=== PATIENT | female | born 1995 | race Caucasian/White ===

== ENCOUNTER 2016-12-29 22:49 | Outpatient (CLI) | payer MEDICAID | END 2016-12-30 00:10 | disposition home or self-care (01) | LOC: MW.OBCHECK 22:49 → MW.OB 22:52 → MW.OBCHECK 12-30 00:10 | PROVIDERS: ATTEND Obstetrics & Gynecology | DX: O26.893 Other specified pregnancy related conditions, third trimester (principal); R51 Headache; M79.89 Other specified soft tissue disorders | CPT/HCPCS: 59025; 81003 ==

== ENCOUNTER 2017-01-06 23:43 | Inpatient (IN) | payer MEDICAID ==
[2017-01-07] MEDS ORDERED: Sodium Chloride 0.9% 2.5 ML Syringe FLUSH PRN (01:47)
[2017-01-07] MEDS ORDERED: Water For Irrigation,Sterile 1,000 ML Container IRR PRN (01:47)
[2017-01-07] MEDS ORDERED: Sodium Chloride 0.9% 10 ML Syringe FLUSH PRN (01:47)
[2017-01-07] MEDS ORDERED: Misoprostol 200 MCG Tab PO PRN (01:47)
[2017-01-07] MEDS ORDERED: Butorphanol 1 MG/ML SDV IVPUSH PRN (01:47)
[2017-01-07] MEDS ORDERED: Nalbuphine 10 MG/1 ML Vial IVPUSH PRN (01:47)
[2017-01-07] MEDS ORDERED: Lidocaine 1% 50 ML MDV INJECT PRN (01:47)
[2017-01-07] MEDS ORDERED: Carboprost Tromethamine 250 MCG/1 ML Amp IM PRN (01:47)
[2017-01-07] MEDS ORDERED: Methylergonovine 0.2 MG/1 ML Amp IM PRN (01:47)
[2017-01-07] MEDS ORDERED: Oxytocin/Lactated Ringers 30 UNIT/500 ML BAG IV SCH ×2 (02:00→07:15)
[2017-01-07] MEDS: Lactated Ringers 1,000 ML IV SCH ×2 (02:10→08:59)
[2017-01-07] MEDS ORDERED: Misoprostol 25 MCG (1/4 of 100 MCG) Tab VAG PRN (07:07)
[2017-01-07] MEDS ORDERED: Terbutaline 1 MG/ML SDV SUBCUT PRN (07:07)
[2017-01-07] MEDS ORDERED: Misoprostol 25 MCG (1/4 of 100 MCG) Tab VAG SCH (07:15)
--- NOTE | 2017-01-07 09:46 | PCM.PREANE ---
Preanesthetic Assessment - Anesthesia/Transfusion/Family Hx Anesthesia History: No Prior Anesthesia Transfusion History: No Prior Transfusion(s) - Review of Systems General: No Symptoms Pulmonary: No Symptoms Cardiovascular: No Symptoms Gastrointestinal: No symptoms Neurological: No Symptoms Other: Reports: None - Physical Assessment Pulse: 87 O2 Sat by Pulse Oximetry: 99 Respiratory Rate: 22 Blood Pressure: 140/86 Height: 5 ft 2 in Weight: 74.69 kg ASA Class: 2 Mental Status: Alert & Oriented x3 Airway Class: Mallampati = 2 Dentition: Reports: Normal Dentition Thyro-Mental Finger Breadths: 3 Mouth Opening Finger Breadths: 3 ROM/Head Extension: Full Lungs: Clear to auscultation, Normal respiratory effort Cardiovascular: Regular Rate, Regular Rhythm - Lab Values: Laboratory Last Values WBC 10.66 K/uL (4.0-11.0) 01/07/17 02:03 RBC 4.27 M/uL (4.30-5.90) L 01/07/17 02:03 Hgb 12.9 g/dL (12.0-16.0) 01/07/17 02:03 Hct 37.8 % (36.0-46.0) 01/07/17 02:03 MCV 88.5 fL (80.0-98.0) 01/07/17 02:03 MCH 30.2 pg (27.0-32.0) 01/07/17 02:03 MCHC 34.1 g/dL (31.0-37.0) 01/07/17 02:03 RDW Std Deviation 42.9 fl (28.0-62.0) 01/07/17 02:03 RDW Coeff of Maria [place] Carmen 13 % (11.0-15.0) 01/07/17 02:03 Plt Count 146 K/uL (150-400) L 01/07/17 02:03 MPV 11.60 fL (7.40-12.00) 01/07/17 02:03 Nucleated RBC % 0.0 /100WBC 01/07/17 02:03 Nucleated RBCs # 0 K/uL 01/07/17 02:03 Membrane Rupture POSITIVE 01/07/17 01:10 Blood Type AB NEGATIVE 01/07/17 02:03 Antibody Screen NEGATIVE 01/07/17 02:03 - Allergies Allergies/Adverse Reactions: Allergies Allergy/AdvReac Type Severity Reaction Status Date / Time Penicillins Allergy Rash Verified 04/15/16 21:31 - Acknowledgements Anesthesia Type Planned: Epidural Pt an Appropriate Candidate for the Planned Anesthesia: Yes Alternatives and Risks of Anesthesia Discussed w Pt/Guardian: Yes Pt/Guardian Understands and Agrees with Anesthesia Plan: Yes PreAnesthesia Questionnaire - Past Health History Medical/Surgical History: Denies Medical/Surgical History HEENT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: None Cardiovascular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: None Respiratory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: None Gastrointestinal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: GERD Genitourinary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: None 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: , Other (see below) : 1 Para: 0 LMP (Approximate): Other OB/BYN History: chlamydia diagnosed in aug 2015 Musculoskeletal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: None Neurological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: None Psychiatric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: None Endocrine/Metabolic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: None Hematologic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: None Immunologic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: None Oncologic (Cancer)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: None Dermatologic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: None - Infectious Disease History Infectious Disease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: None - SUBSTANCE USE Smoking Status *Q: Never Smoker Second Hand Smoke Exposure: No Recreational Drug Use History: No - HOME MEDS Home Medications: Home Meds . [No Known Home Meds] 04/15/16 [History] - CURRENT (IN HOUSE) MEDS Current Meds: Current Medications Butorphanol Tartrate (Stadol) 1 mg IVPUSH ASDIRECTED PRN PRN Reason: Pain Last Admin: 01/07/17 08:58 Dose: 1 mg Carboprost Tromethamine (Hemabate Ds) 250 mcg IM ASDIRECTED PRN PRN Reason: Post Hemorrhage Lactated Ringer's (Ringers, Lactated) 1,000 mls @ 150 mls/hr IV ASDIRECTED JAYANT Last Admin: 01/07/17 08:59 Dose: 150 mls/hr Oxytocin/Lactated Ringer's (Pitocin In Lr 30 Units/500 Ml) 30 unit in 500 mls @ 2 mls/hr IV TITRATE JAYANT; 2 MUNITS/MIN PRN Reason: Protocol Last Titration: 01/07/17 08:55 Dose: 6 munits/min, 6 mls/hr Lidocaine HCl (Xylocaine 1%) 50 ml INJECT .ONCE PRN PRN Reason: Laceration repair Methylergonovine Maleate (Methergine) 0.2 mg IM ASDIRECTED PRN PRN Reason: Post Hemorrhage Misoprostol (Cytotec) 200 mcg PO .ONCE PRN PRN Reason: Post Hemorrhage Misoprostol (Cytotec) 25 mcg VAG .ONCE JAYANT Misoprostol (Cytotec) 25 mcg VAG Q4H PRN PRN Reason: Cervical Ripening Stop: 01/08/17 11:08 Nalbuphine HCl (Nubain) 10 mg IVPUSH ASDIRECTED PRN PRN Reason: Pain (severe 7-10) Stop: 01/09/17 01:48 Sodium Chloride (Saline Flush) 10 ml FLUSH ASDIRECTED PRN PRN Reason: Keep Vein Open Last Admin: 01/07/17 02:10 Dose: 10 ml Sodium Chloride (Saline Flush) 2.5 ml FLUSH ASDIRECTED PRN PRN Reason: Keep Vein Open Sterile Water (Sterile Water For Irrigation) 1,000 ml IRR ASDIRECTED PRN PRN Reason: delivery Terbutaline Sulfate (Brethine) 0.25 mg SUBCUT ASDIRECTED PRN PRN Reason: Tacysystole Discontinued Medications Oxytocin/Lactated Ringer's (Pitocin In Lr 30 Units/500 Ml) 30 unit in 500 mls @ 999 mls/hr IV ASDIRECTED JAYANT PRN Reason: 999 MUNITS/MIN Stop: 01/07/17 02:31
[2017-01-07] MEDS ORDERED: Ropivacaine HCl/PF 100 ML ONE (09:48)
[2017-01-07] MEDS ORDERED: fentaNYL 100 MCG/2 ML SDV ONE (09:48)
[2017-01-07] MEDS ORDERED: Ibuprofen 400 MG Tab PO PRN (11:56)
[2017-01-07] MEDS ORDERED: Bisacodyl 10 MG Supp RECTAL PRN (11:56)
[2017-01-07] MEDS ORDERED: Docusate Sodium 100 MG Cap PO PRN (11:56)
[2017-01-07] MEDS ORDERED: oxyCODONE 5 MG Tab PO PRN (11:56)
[2017-01-07] MEDS ORDERED: Witch Hazel Medicated Pads 40/Jar TOP PRN (11:56)
[2017-01-07] MEDS ORDERED: Lanolin 100% Cream 7 GM Tube TOP PRN (11:56)
[2017-01-07] MEDS ORDERED: Acetaminophen 500 MG Tab PO PRN ×2 (11:56)
[2017-01-07] MEDS ORDERED: Simethicone 80 MG Tab.Chew PO PRN (11:56)
[2017-01-07] MEDS ORDERED: Benzocaine/Menthol 20%-0.5% Spray 78 GM Cannister TOP PRN (11:56)
--- NOTE | 2017-01-07 16:21 | OR ---
SURGEON: Helga Arreola M.D. DATE OF PROCEDURE: 01/07/2017 PREOPERATIVE DIAGNOSES: 1. A 39 and 4/7 weeks' intrauterine . 2. Spontaneous rupture of membranes with labor. POSTOPERATIVE DIAGNOSES: 1. A 39 and 4/7 weeks' intrauterine . 2. Spontaneous rupture of membranes with labor. PROCEDURE: Spontaneous vaginal delivery, first-degree midline laceration repair. ESTIMATED BLOOD LOSS: 300 mL. ANESTHESIA: Epidural. COMPLICATIONS: None. FINDINGS: Viable male, score 9 at 1 minute, 9 at 5 minutes. Weight is pending. Spontaneous delivery, intact placenta, 3-vessel cord. DISPOSITION: to nursery, mom in LDRP, stable. 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 Clear fluid was noted. She was group B beta strep negative. Therefore, she was admitted. Routine labs were drawn, and she was monitored for further dilatation, however, she made minimal cervical change and therefore was initiated on Pitocin augmentation shortly after 7:00 a.m. At that time, there was a there was a fore-bag noted, this was ruptured and copious clear fluid was returned. heart tones are category one. The patient responded nicely to the Pitocin, became increasingly uncomfortable. Anesthesia in the form of epidural, became more comfortable thereafter and quickly progressed to complete. Shortly after 11:00 a.m., I was called for delivery. The patient was found to be completely 100% effaced, +2 station. She was placed in modified dorsal lithotomy position, prepped and draped with the usual aseptic fashion. With pushing efforts, the patient was adequately able to push to a +4 station. Shortly thereafter, was able to deliver 's head atraumatically, spontaneously, followed by anterior shoulder, posterior shoulder, remainder of body without difficulty. The infant's oropharynx, nares, bulb suctioned. Cord clamped x2 and cut. Infant crying vigorously and handed off to his mother with her attending nursing staff at her side. Cord arterial, cord venous, cord blood samples were obtained. Light suprapubic pressure was applied while the placenta was delivered spontaneously intact. Vigorous fundal uterine massage was then applied with 30 units Pitocin was delivered in 500 mL IV fluid. Upon inspection of cervix outside of perineum, there was found to be a first-degree right hymenal laceration present and 2 superficial periurethral lacerations. These were repaired using 3-0 Vicryl in continuous running fashion. The patient tolerated the procedure well overall. Hemostasis remained evident. Uterus remained firm. Sponge count and needle count correct. The patient remained in LDRP. Infant nursery. JAVI / TAHIRA /[id number]
[2017-01-07] MEDS: Ibuprofen 800 MG Tab PO PRN (22:36)
--- NOTE | 2017-01-08 09:00 | PCM.PNPP ---
- General Info Date of Service: 01/08/17 Subjective Update: Patient is feeling well overall--ambulating, voiding. Pain is well controlled, back is just a little sore. Lochia is dissipating. She would like to go home today. Continues to work with . Functional Status: Reports: pain controlled, tolerating diet, ambulating, urinating - Review of Systems General: Denies: Fever, Weakness Pulmonary: Denies: shortness of breath Cardiovascular: Denies: Chest Pain, Palpitations, Lightheadedness Gastrointestinal: Denies: Abdominal pain, Nausea, Vomiting Genitourinary: Denies: flank pain Skin: Reports: no symptoms Neurological: Reports: No Symptoms Psychiatric: Reports: no symptoms - General Info Date of Service: 01/08/17 - Patient Data Vital Signs - most recent: Last Vital Signs Temp 36.8 C 01/07/17 20:52 Pulse 75 01/07/17 20:52 Resp 18 01/07/17 20:52 BP 117/73 01/07/17 20:52 Pulse Ox 97 01/07/17 17:00 Weight - most recent: 74.69 kg Lab Results - last 24 hrs: Laboratory Results - last 24 hr 01/08/17 Range/Units 04:46 Hgb 10.9 L (12.0-16.0) g/dL Hct 32.7 L (36.0-46.0) % Med Orders - Current: Current Medications Acetaminophen (Tylenol Extra Strength) 500 mg PO Q4H PRN PRN Reason: Pain Acetaminophen (Tylenol Extra Strength) 1,000 mg PO Q4H PRN PRN Reason: Pain Benzocaine/Menthol (Dermoplast Pain Relief 20%-0.5% [place]) 78 gm TOP ASDIRECTED PRN PRN Reason: Perineal Comfort Measure Last Admin: 01/07/17 15:52 Dose: 78 gm Bisacodyl (Dulcolax) 10 mg RECTAL .ONCE PRN PRN Reason: Constipation Carboprost Tromethamine (Hemabate Ds) 250 mcg IM ASDIRECTED PRN PRN Reason: Post Hemorrhage Docusate Sodium (Colace) 100 mg PO BID PRN PRN Reason: Constipation Emollient Ointment (Lansinoh Hpa) 0 gm TOP ASDIRECTED PRN PRN Reason: Sore Nipples Lactated Ringer's (Ringers, Lactated) 1,000 mls @ 150 mls/hr IV ASDIRECTED JAYANT Last Admin: 01/07/17 08:59 Dose: 150 mls/hr Oxytocin/Lactated Ringer's (Pitocin In Lr 30 Units/500 Ml) 30 unit in 500 mls @ 2 mls/hr IV TITRATE JAYANT; 2 MUNITS/MIN PRN Reason: Protocol Last Titration: 01/07/17 09:24 Dose: 8 munits/min, 8 mls/hr Ibuprofen (Motrin) 400 mg PO Q4H PRN PRN Reason: Pain Ibuprofen (Motrin) 800 mg PO Q6H PRN PRN Reason: Pain Last Admin: 01/07/17 22:36 Dose: 800 mg Methylergonovine Maleate (Methergine) 0.2 mg IM ASDIRECTED PRN PRN Reason: Post Hemorrhage Oxycodone HCl (Oxycodone) 5 mg PO Q2H PRN PRN Reason: Pain Simethicone (Simethicone) 80 mg PO Q4H PRN PRN Reason: Gas Sodium Chloride (Saline Flush) 2.5 ml FLUSH ASDIRECTED PRN PRN Reason: Keep Vein Open Witch Adriana (Tucks) 1 pad TOP ASDIRECTED PRN PRN Reason: comfort care Last Admin: 01/07/17 15:51 Dose: 1 pad Discontinued Medications Butorphanol Tartrate (Stadol) 1 mg IVPUSH ASDIRECTED PRN PRN Reason: Pain Last Admin: 01/07/17 08:58 Dose: 1 mg Fentanyl (Sublimaze) Confirm Administered Dose 100 mcg .ROUTE .STK-MED ONE Stop: 01/07/17 09:49 Oxytocin/Lactated Ringer's (Pitocin In Lr 30 Units/500 Ml) 30 unit in 500 mls @ 999 mls/hr IV ASDIRECTED JAYANT PRN Reason: 999 MUNITS/MIN Stop: 01/07/17 02:31 Ropivacaine (Naropin 0.2%) Confirm Administered Dose 100 mls @ as directed .ROUTE .STK-MED ONE Stop: 01/07/17 09:49 Lidocaine HCl (Xylocaine 1%) 50 ml INJECT .ONCE PRN PRN Reason: Laceration repair Misoprostol (Cytotec) 200 mcg PO .ONCE PRN PRN Reason: Post Hemorrhage Misoprostol (Cytotec) 25 mcg VAG .ONCE JAYANT Misoprostol (Cytotec) 25 mcg VAG Q4H PRN PRN Reason: Cervical Ripening Stop: 01/08/17 11:08 Nalbuphine HCl (Nubain) 10 mg IVPUSH ASDIRECTED PRN PRN Reason: Pain (severe 7-10) Stop: 01/09/17 01:48 Sodium Chloride (Saline Flush) 10 ml FLUSH ASDIRECTED PRN PRN Reason: Keep Vein Open Last Admin: 01/07/17 02:10 Dose: 10 ml Sterile Water (Sterile Water For Irrigation) 1,000 ml IRR ASDIRECTED PRN PRN Reason: delivery Last Admin: 01/07/17 11:28 Dose: 1,000 ml Terbutaline Sulfate (Brethine) 0.25 mg SUBCUT ASDIRECTED PRN PRN Reason: Tacysystole - Infant Interaction Disposition, : [place] in Room with Family Infant Interaction: Holding Infant Feeding: Continues to Breastfeed, Difficulty with Latch-on Support Person: Significant Other - Recovery Exam Fundal Tone: Firm Fundal Level: 2 Fingerbreadths Below Umbilicus Fundal Placement: Midline Lochia Amount: Scant Lochia Color: Rubra/Red Perineum Description: Intact, Minimal Bruising/Swelling Episiotomy/Laceration: Approximated Bladder Status: Voiding Urinary Elimination: Voided - Exam General: alert, oriented Lungs: Normal respiratory effort Cardiovascular: Regular Rate, Regular Rhythm Abdomen: soft, no tenderness. No: CVA tenderness Extremities: no calf tenderness Skin: warm, dry, intact Psy/Mental Status: alert, normal affect - Problem List & Annotations (1) Vaginal delivery SNOMED Code(s): 446672836 Code(s): O80 - ENCOUNTER FOR FULL-TERM UNCOMPLICATED DELIVERY Status: Acute Current Visit: Yes - Problem List Review Problem List Initiated/Reviewed/Updated: Yes - My Orders Last 24 Hours: My Active Orders 01/07/17 11:56 Oxygen Therapy [RC] ASDIRECTED Acetaminophen [Tylenol Extra Strength] 1,000 mg PO Q4H PRN Acetaminophen [Tylenol Extra Strength] 500 mg PO Q4H PRN Benzocaine/Menthol [Dermoplast Pain Relief 20%-0.5% [place]] 78 gm TOP ASDIRECTED PRN Bisacodyl [Dulcolax] 10 mg RECTAL .ONCE PRN Docusate Sodium [Colace] 100 mg PO BID PRN Ibuprofen [Motrin] 400 mg PO Q4H PRN Ibuprofen [Motrin] 800 mg PO Q6H PRN Lanolin [Lansinoh HPA] See Dose Instructions TOP ASDIRECTED PRN Simethicone 80 mg PO Q4H PRN Witch Adriana [Tucks] 1 pad TOP ASDIRECTED PRN oxyCODONE 5 mg PO Q2H PRN 01/07/17 11:57 Patient Status [ADT] Routine May Shower [RC] ASDIRECTED Up ad [place]in [RC] ASDIRECTED Vital Signs [RC] PER UNIT ROUTINE Assess Lochia [WOMSER] Per Unit Routine Assess Uterine Involution [WOMSER] Per Unit Routine Ice Therapy [OM.PC] Per Unit Routine Perineal Care [OM.PC] Per Unit Routine Peripheral IV Discontinue [OM.PC] Routine Sitz Bath [OM.PC] Per Unit Routine 01/07/17 Lunch Regular Diet [DIET] 01/08/17 08:56 Ready for Discharge [RC] PER UNIT ROUTINE - Assessment Assessment:: PPD 1 status post - Plan Plan:: [place] with cares and working with this morning. Patient highly motivated to go home today. Agrees to wait until this afternoon and continue to work with . If continues to progress, agree with discharge. She has good social support. Discharge to home later today. Discharge instructions reviewed. Infection and bleeding warnings reviewed.
--- NOTE | 2017-01-08 09:02 | PCM48HPAN ---
Post Anesthesia Note - EVALUATION WITHIN 48HRS OF ANESTHETIC Vital Signs in Normal Range: Yes Patient Participated in Evaluation: Yes Respiratory Function Stable: Yes Airway Patent: Yes Cardiovascular Function Stable: Yes Hydration Status Stable: Yes Pain Control Satisfactory: Yes Nausea and Vomiting Control Satisfactory: Yes Mental Status Recovered: Yes - COMMENTS/OBSERVATIONS Free Text/Narrative:: Pt reports residual soreness in back from epidural placement. States she was eli and very tense which contributed to this. Denies any other problems. Reassured that soreness will resolve over the course of a few days.
[2017-01-08] MEDS: Ibuprofen 800 MG Tab PO PRN (11:52)
[2017-01-08 16:10] VITALS: BP 121/77
== END 2017-01-08 17:35 | disposition home or self-care (01) | DRG 775 ==
LOC: MW.OBCHECK 23:43 → MW.OB 23:44 → MW.OBCHECK 01-07 01:48 → MW.OB 01-07 01:48 → OBSVTOIN 01-07 11:40 → MW.OB 01-07 20:11
PROVIDERS: ADMIT Obstetrics & Gynecology; ATTEND Obstetrics & Gynecology
PROC: 10E0XZZ Delivery of Products of Conception, External Approach (ICD-10-PCS; principal; 2017-01-07)
PROC: 0HQ9XZZ Repair Perineum Skin, External Approach (ICD-10-PCS; 2017-01-07)
DX: O42.02 Full-term premature rupture of membranes, onset of labor within 24 hours of rupture (principal); O70.0 First degree perineal laceration during delivery; Z3A.39 39 weeks gestation of pregnancy; Z37.0 Single live birth
CPT/HCPCS: 01967; 36415; 59025; 84112; 85014; 85018; 85027; 86850; 86900; 86901; A9270-GY; J0595; J2795; J3010; J7120

== ENCOUNTER 2017-01-10 22:57 | Emergency (ER) | payer MEDICAID ==
--- NOTE | 2017-01-10 23:12 | EDM.PDOC ---
ED HPI GENERAL MEDICAL PROBLEM - General Chief Complaint: Genitourinary Problem Stated Complaint: UNABLE TO GO TO THE RESTROOM Time Seen by Provider: 01/10/17 23:12 Source of Information: Reports: Patient - History of Present Illness INITIAL COMMENTS - FREE TEXT/NARRATIVE: HISTORY AND PHYSICAL: History of present illness: [] Patient is normal vaginal delivery without complication 3-4 days prior, she presents with dysuria No fever nausea vomiting chills sweats Review of systems: As per history of present illness and below otherwise all systems reviewed and negative. Past medical history: As per history of present illness and as reviewed below otherwise noncontributory. Surgical history: As per history of present illness and as reviewed below otherwise noncontributory. Social history: No reported history of drug or alcohol abuse. Family history: As per history of present illness and as reviewed below otherwise noncontributory. Physical exam: HEENT: Atraumatic, normocephalic, pupils reactive, negative for conjunctival pallor or scleral icterus, mucous membranes moist, throat clear, neck supple, nontender, trachea midline. Lungs: Clear to auscultation, breath sounds equal bilaterally, chest nontender. Heart: S1S2, regular, negative for clicks, rubs, or JVD. Abdomen: Soft, nondistended, nontender. Negative for masses or hepatosplenomegaly. Negative for costovertebral tenderness. Pelvis: Stable nontender. Genitourinary: Deferred. Rectal: Deferred. Extremities: Atraumatic, negative for cords or calf pain. Neurovascular unremarkable. Neuro: Awake, alert, oriented. Cranial nerves II through XII unremarkable. Cerebellum unremarkable. Motor and sensory unremarkable throughout. Exam nonfocal. Diagnostics: [] UA with culture Therapeutics: Patient currently not breast-feeding [] Cipro, is safe in however patient is to breast-feed for 3-4 hours after medication dose Pyridium Impression: [] UTI Definitive disposition and diagnosis as appropriate pending reevaluation and review of above. Bladder Pain Score (Numeric/FACES): 7 - Related Data Allergies Allergy/AdvReac Type Severity Reaction Status Date / Time Penicillins Allergy Rash Verified 04/15/16 21:31 Home Meds: Home Meds . 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: , Other (see below) Other OB/BYN History: chlamydia diagnosed in aug 2015 Musculoskeletal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: None Neurological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: None Psychiatric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: None Endocrine/Metabolic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: None Hematologic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: None Immunologic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: None Oncologic (Cancer)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: None Dermatologic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: None - Infectious Disease History Infectious Disease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: None Social & Family History - Family History Family Medical History: Noncontributory - Tobacco Use Smoking Status *Q: Never Smoker Second Hand Smoke Exposure: No - Caffeine Use Caffeine Use: Reports: Coffee, Soda - Recreational Drug Use Recreational Drug Use: No ED ROS GENERAL - Review of Systems Review Of Systems: ROS reveals no pertinent complaints other than HPI. ED EXAM, GENERAL - Physical Exam Exam: See Below Course - Vital Signs Last Recorded V/S: Last Vital Signs Temp 36.8 C 01/10/17 23:02 Pulse 98 01/10/17 23:02 Resp 16 01/10/17 23:02 BP 131/71 01/10/17 23:02 Pulse Ox 97 01/10/17 23:02 - Orders/Labs/Meds Orders: Active Orders 24 hr Category Date Time Status CULTURE URINE [RM] Stat Lab 01/10/17 23:57 Uncollected Labs: Laboratory Tests 01/10/17 Range/Units 23:28 Urine Color YELLOW Urine Appearance SLT CLOUDY Urine pH 6.5 (5.0-8.0) Ur Specific [place] 1.025 (1.001-1.035) Urine Protein TRACE (NEGATIVE) mg/dL Urine Glucose (UA) NEGATIVE (NEGATIVE) mg/dL Urine Ketones NEGATIVE (NEGATIVE) mg/dL Urine Occult Blood LARGE H (NEGATIVE) Urine Nitrite NEGATIVE (NEGATIVE) Urine Bilirubin NEGATIVE (NEGATIVE) Urine Urobilinogen 1.0 (<2.0) EU/dL Ur Leukocyte Esterase MODERATE (NEGATIVE) Urine RBC 6-16 (0-2/HPF) Urine WBC 60-80 (0-5/HPF) Ur Epithelial Cells FEW (NONE-FEW) Amorphous Sediment LIGHT (NEGATIVE) Urine Bacteria RARE (NEGATIVE) Urine Mucus LIGHT (NONE-MOD) Departure - Departure Time of Disposition: 00:02 Disposition: Home, Self-Care 01 Condition: good Clinical Impression: UTI, Urinary tract infectious disease Forms: ED Department Discharge Additional Instructions: medication as prescribed Return if fever nausea vomiting chills sweats despite antibiotics Followup with OB as scheduled The following information is given to patients seen in the emergency department who are being discharged to home. This information is to outline your options for follow-up care. We provide all patients seen in our emergency department with a follow-up referral. The need for follow-up, as well as the timing and circumstances, are variable depending upon the specifics of your emergency department visit. If you don't have a primary care physician on staff, we will provide you with a referral. We always advise you to contact your personal physician following an emergency department visit to inform them of the circumstance of the visit and for follow-up with them and/or the need for any referrals to a consulting specialist. The emergency department will also refer you to a specialist when appropriate. This referral assures that you have the opportunity for follow-up care with a specialist. All of these measure are taken in an effort to provide you with optimal care, which includes your follow-up. Under all circumstances we always encourage you to contact your private physician who remains a resource for coordinating your care. When calling for follow-up care, please make the office aware that this follow-up is from your recent emergency room visit. If for any reason you are refused follow-up, please contact the [facility] emergency department at and asked to speak to the emergency department charge nurse. - My Orders Last 24 Hours: My Active Orders 01/10/17 23:57 CULTURE URINE [RM] Stat - Assessment/Plan Last 24 Hours: My Active Orders 01/10/17 23:57 CULTURE URINE [RM] Stat
[2017-01-11 00:13] VITALS: BP 115/79
== END 2017-01-11 00:10 | disposition home or self-care (01) ==
LOC: MW.ED 22:57
DX: N39.0 Urinary tract infection, site not specified (principal)
CPT/HCPCS: 81001; 87086; 99283

== ENCOUNTER 2018-03-10 04:22 | Inpatient (IN) | payer BC ==
[2018-03-10] MEDS ORDERED: Sodium Chloride 0.9% 10 ML Syringe FLUSH PRN (05:14)
[2018-03-10] MEDS ORDERED: Nalbuphine 10 MG/1 ML Vial IVPUSH PRN (05:14)
[2018-03-10] MEDS ORDERED: Lidocaine 1% 50 ML MDV INJECT PRN (05:14)
[2018-03-10] MEDS ORDERED: Tranexamic Acid 1,000 MG in Sodium Chloride 0.9% 100 ML IV PRN (05:14)
[2018-03-10] MEDS ORDERED: Misoprostol 200 MCG Tab PO PRN (05:14)
[2018-03-10] MEDS ORDERED: Carboprost Tromethamine 250 MCG/1 ML Amp IM PRN (05:14)
[2018-03-10] MEDS ORDERED: Sodium Chloride 0.9% 2.5 ML Syringe FLUSH PRN (05:14)
[2018-03-10] MEDS ORDERED: Butorphanol 1 MG/ML SDV IVPUSH PRN (05:14)
[2018-03-10] MEDS ORDERED: Methylergonovine 0.2 MG/1 ML Amp IM PRN (05:14)
[2018-03-10] MEDS ORDERED: Water For Irrigation,Sterile 1,000 ML Container IRR PRN (05:14)
[2018-03-10] MEDS ORDERED: Oxytocin/0.9 % Sodium Chloride 30 UNIT/500 ML BAG IV SCH (05:15)
[2018-03-10] MEDS: Lactated Ringers 1,000 ML IV SCH ×3 (05:35→06:58)
--- NOTE | 2018-03-10 05:43 | PCM.LDHP ---
L&D History of Present Illness - General Date of Service: 03/10/18 Admit Problem/Dx: Patient Status Order with Admit Dx/Problem 03/10/18 05:01 Patient Status [ADT] Routine 03/10/18 05:14 Patient Status [ADT] Routine Admission Diagnosis/Problem Admission Diagnosis/Problem - planned 03/10/18 05:39 21 yo EDC 03/11/2018 39 6/7wks, AB-, RI, GBS neg. Comes in active labor [facility] fluid Source of Information: Patient History Limitations: Reports: No Limitations - History of Present Illness Timing/Duration: Reports: minutes: Location, : Reports: Abdomen Quality: Reports: Ache, Sharp Severity: Moderate Improves with: Reports: None Worsens with: Reports: None Associated Symptoms: Reports: N - Related Data Allergies/Adverse Reactions: Allergies Allergy/AdvReac Type Severity Reaction Status Date / Time Penicillins Allergy Rash Verified 03/10/18 04:51 Home Medications: Home Meds Vits #93/Iron Fum/FA [ Formula Tablet] 1 each PO 03/10/18 [ History] Past Medical History - Past Health History Medical/Surgical History: Denies Medical/Surgical History HEENT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: None Cardiovascular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: None Respiratory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: None Gastrointestinal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: GERD Genitourinary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: None 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: , 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) Other OB/BYN History: chlamydia diagnosed in aug 2015 Musculoskeletal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: None Neurological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: None Psychiatric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: None Endocrine/Metabolic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: None Hematologic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: None Immunologic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: None Oncologic (Cancer)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: None Dermatologic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: None - Infectious Disease History Infectious Disease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: None Social & Family History - Family History Family Medical History: Noncontributory Respiratory: Reports: COPD, 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) Other Respiratory Family Hisory: emphysema Oncologic: Reports: Lung - Caffeine Use Caffeine Use: Reports: Coffee, Soda H&P Review of Systems - Review of Systems: Review Of Systems: See Below General: Reports: No Symptoms HEENT: Reports: No Symptoms Pulmonary: Reports: No Symptoms Cardiovascular: Reports: No Symptoms Gastrointestinal: Reports: No Symptoms Genitourinary: Reports: No Symptoms Musculoskeletal: Reports: No Symptoms Skin: Reports: No Symptoms Psychiatric: Reports: No Symptoms Neurological: Reports: No Symptoms Hematologic/Lymphatic: Reports: No Symptoms Immunologic: Reports: No Symptoms L&D Exam - Exam Exam: See Below - Vital Signs Weight: 79.379 kg - OB Specific Contraction Intensity: Moderate to Strong Movement: Active Heart Tones: Present Heart Tones per Min: 155 Heart Rate (FHR) Variability: Moderate (6-25 bmp) Presentation: Vertex - Exam General: Alert, Oriented, Cooperative Lungs: Normal Respiratory Effort GI/Abdominal Exam: Soft, Non-Tender, No Organomegaly, No Distention, No Abnormal Bruit, No Mass, Pelvis Stable Rectal Exam: Deferred Genitourinary: Normal external exam, Normal bimanual exam, Cervical dilitation, Cervical fluid Back Exam: Normal Inspection, Full Range of Motion Extremities: Normal Inspection, Normal Range of Motion, Non-Tender, No Pedal Edema, Normal Capillary Refill Skin: Warm, Dry, Intact Neurological: Cranial Nerves Intact, Strength Equal Bilateral, Normal Speech, Normal Tone Psychiatric: Alert, Normal Affect, Normal Mood - Patient Data Lab Results Last 24 hrs: Laboratory Results - last 24 hr 03/10/18 Range/Units 04:45 Membrane Rupture POSITIVE - Problem List (1) Supervision of normal IUP (intrauterine ) in multigravida SNOMED Code(s): 963759923, 938177484, 664002623 ICD Code: Z34.80 - ENCOUNTER FOR SUPRVSN OF NORMAL , UNSP TRIMESTER Status: Acute Current Visit: Yes Qualifiers: Trimester: third trimester Qualified Code(s): Z34.83 - Encounter for supervision of other normal , third trimester Problem List Initiated/Reviewed/Updated: Yes Orders Last 24hrs: Active Orders 24 hr Category Date Time Status Patient Status [ADT] Routine ADT 03/10/18 05:01 Active Patient Status [ADT] Routine ADT 03/10/18 05:14 Active Heart Tones [RC] CONTINUOUS Care 03/10/18 05:14 Active Non Stress Test [RC] PER UNIT ROUTINE Care 03/10/18 05:01 Active Non Stress Test [RC] PER UNIT ROUTINE Care 03/10/18 05:14 Active May Shower [RC] ASDIRECTED Care 03/10/18 05:14 Active Notify Provider [RC] PRN Care 03/10/18 05:14 Active Up ad Carolin [RC] ASDIRECTED Care 03/10/18 05:01 Active Up ad Carolin [RC] ASDIRECTED Care 03/10/18 05:14 Active Vaginal Exam [RC] Click to Edit Care 03/10/18 05:01 Active Vital Signs [RC] PER UNIT ROUTINE Care 03/10/18 05:01 Active CBC W/O DIFF,HEMOGRAM [HEME] Routine Lab 03/10/18 05:14 Ordered TYPE AND SCREEN [BBK] Routine Lab 03/10/18 05:14 Ordered Butorphanol [Stadol] Med 03/10/18 05:14 Active 1 mg IVPUSH Q1H PRN Carboprost Tromethamine [Hemabate DS] Med 03/10/18 05:14 Active 250 mcg IM ASDIRECTED PRN Lactated Ringers [Ringers, Lactated] 1,000 ml Med 03/10/18 05:15 Active IV ASDIRECTED Lidocaine 1% [Xylocaine 1%] Med 03/10/18 05:14 Active 50 ml INJECT .ONCE PRN Methylergonovine [Methergine] Med 03/10/18 05:14 Active 0.2 mg IM ASDIRECTED PRN Misoprostol [Cytotec] Med 03/10/18 05:14 Active 200 mcg PO .ONCE PRN Nalbuphine [Nubain] Med 03/10/18 05:14 Active 10 mg IVPUSH Q1H PRN Oxytocin/0.9 % Sodium Chloride [Oxytocin 30 Unit/500 ML Med 03/10/18 05:15 Active -NS] 30 unit in 500 ml IV TITRATE Sodium Chloride 0.9% [Saline Flush] Med 03/10/18 05:14 Active 10 ml FLUSH ASDIRECTED PRN Sodium Chloride 0.9% [Saline Flush] Med 03/10/18 05:14 Active 2.5 ml FLUSH ASDIRECTED PRN Tranexamic Acid [Cyklokapron] 1,000 mg Med 03/10/18 05:14 Active Sodium Chloride 0.9% [Normal Saline] 100 ml IV ONETIME Water For Irrigation,Sterile [Sterile Water for Med 03/10/18 05:14 Active Irrigation] 1,000 ml IRR ASDIRECTED PRN Scalp Electrode [WOMSER] Per Unit Routine Oth 03/10/18 05:14 Ordered Peripheral IV Insertion Adult [OM.PC] Routine Oth 03/10/18 05:14 Ordered Resuscitation Status Routine Resus Stat 03/10/18 05:01 Ordered Medication Orders Butorphanol Tartrate (Stadol) 1 mg IVPUSH Q1H PRN PRN Reason: Pain Carboprost Tromethamine (Hemabate Ds) 250 mcg IM ASDIRECTED PRN PRN Reason: Post Hemorrhage Tranexamic Acid 1,000 mg/ (Sodium Chloride) 110 mls @ 660 mls/hr IV ONETIME PRN PRN Reason: Bleeding Lactated Ringer's (Ringers, Lactated) 1,000 mls @ 150 mls/hr IV ASDIRECTED JAYANT Oxytocin/Sodium Chloride (Oxytocin 30 Unit/500 Ml-Ns) 30 unit in 500 mls @ 999 mls/hr IV TITRATE [facility] Lidocaine HCl (Xylocaine 1%) 50 ml INJECT .ONCE PRN PRN Reason: Laceration repair Methylergonovine Maleate (Methergine) 0.2 mg IM ASDIRECTED PRN PRN Reason: Post Hemorrhage Misoprostol (Cytotec) 200 mcg PO .ONCE PRN PRN Reason: Post Hemorrhage Nalbuphine HCl (Nubain) 10 mg IVPUSH Q1H PRN PRN Reason: Pain (severe 7-10) Sodium Chloride (Saline Flush) 10 ml FLUSH ASDIRECTED PRN PRN Reason: Keep Vein Open Sodium Chloride (Saline Flush) 2.5 ml FLUSH ASDIRECTED PRN PRN Reason: Keep Vein Open Sterile Water (Sterile Water For Irrigation) 1,000 ml IRR ASDIRECTED PRN PRN Reason: delivery Assessment/Plan Comment:: LABOR A: 21 yo EDC 03/11/2018 39 6/7wks, AB-, RI, GBS neg. Comes in active labor [facility] fluid P: Admit, epidural prn, anticipate . Will have resp at bs for delivery
--- NOTE | 2018-03-10 06:16 | PCM.PREANE ---
Preanesthetic Assessment - Anesthesia/Transfusion/Family Hx Anesthesia History: Prior Anesthesia Without Reaction Transfusion History: No Prior Transfusion(s) - Review of Systems General: No Symptoms Pulmonary: No Symptoms Cardiovascular: No Symptoms Gastrointestinal: No Symptoms Neurological: No Symptoms Other: Reports: None - Physical Assessment Height: 5 ft 2 in Weight: 79.379 kg ASA Class: 2 Mental Status: Alert & Oriented x3 Airway Class: Mallampati = 2 Dentition: Reports: Normal Dentition Thyro-Mental Finger Breadths: 3 Mouth Opening Finger Breadths: 3 ROM/Head Extension: Full Lungs: Clear to Auscultation, Normal Respiratory Effort Cardiovascular: Regular Rate, Regular Rhythm - Lab Values: Laboratory Last Values Membrane Rupture POSITIVE 03/10/18 04:45 - Allergies Allergies/Adverse Reactions: Allergies Allergy/AdvReac Type Severity Reaction Status Date / Time Penicillins Allergy Rash Verified 03/10/18 04:51 - Acknowledgements Anesthesia Type Planned: Epidural Pt an Appropriate Candidate for the Planned Anesthesia: Yes Alternatives and Risks of Anesthesia Discussed w Pt/Guardian: Yes Pt/Guardian Understands and Agrees with Anesthesia Plan: Yes PreAnesthesia Questionnaire - Past Health History Medical/Surgical History: Denies Medical/Surgical History HEENT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: None Cardiovascular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: None Respiratory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: None Gastrointestinal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: GERD Genitourinary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: None [employer]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: , 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) : 2 Para: 1 LMP (Approximate): Other OB/BYN History: chlamydia diagnosed in aug 2015 Musculoskeletal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: None Neurological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: None Psychiatric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: None Endocrine/Metabolic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: Obesity/BMI 30+ Hematologic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: None, 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) (Hx of thrombocytopenia) Immunologic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: None Oncologic (Cancer)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: None Dermatologic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: None - Infectious Disease History Infectious Disease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: None - HOME MEDS Home Medications: Home Meds Vits #93/Iron Fum/FA [ Formula Tablet] 1 each PO 03/10/18 [ History] - CURRENT (IN HOUSE) MEDS Current Meds: Current Medications Butorphanol Tartrate (Stadol) 1 mg IVPUSH Q1H PRN PRN Reason: Pain Carboprost Tromethamine (Hemabate Ds) 250 mcg IM ASDIRECTED PRN PRN Reason: Post Hemorrhage Tranexamic Acid 1,000 mg/ (Sodium Chloride) 110 mls @ 660 mls/hr IV ONETIME PRN PRN Reason: Bleeding Lactated Ringer's (Ringers, Lactated) 1,000 mls @ 150 mls/hr IV ASDIRECTED [facility] Last Admin: 03/10/18 06:06 Dose: 999 mls/hr Oxytocin/Sodium Chloride (Oxytocin 30 Unit/500 Ml-Ns) 30 unit in 500 mls @ 999 mls/hr IV TITRATE [facility] Lidocaine HCl (Xylocaine 1%) 50 ml INJECT .ONCE PRN PRN Reason: Laceration repair Methylergonovine Maleate (Methergine) 0.2 mg IM ASDIRECTED PRN PRN Reason: Post Hemorrhage Misoprostol (Cytotec) 200 mcg PO .ONCE PRN PRN Reason: Post Hemorrhage Nalbuphine HCl (Nubain) 10 mg IVPUSH Q1H PRN PRN Reason: Pain (severe 7-10) Sodium Chloride (Saline Flush) 10 ml FLUSH ASDIRECTED PRN PRN Reason: Keep Vein Open Sodium Chloride (Saline Flush) 2.5 ml FLUSH ASDIRECTED PRN PRN Reason: Keep Vein Open Sterile Water (Sterile Water For Irrigation) 1,000 ml IRR ASDIRECTED PRN PRN Reason: delivery
[2018-03-10] MEDS ORDERED: Bisacodyl 10 MG Supp RECTAL PRN (08:21)
[2018-03-10] MEDS ORDERED: Benzocaine/Menthol 20%-0.5% Spray 78 GM Cannister TOP PRN (08:21)
[2018-03-10] MEDS ORDERED: oxyCODONE 5 MG Tab PO PRN (08:21)
[2018-03-10] MEDS ORDERED: Ibuprofen 400 MG Tab PO PRN (08:21)
[2018-03-10] MEDS ORDERED: Docusate Sodium 100 MG Cap PO PRN (08:21)
[2018-03-10] MEDS ORDERED: Ibuprofen 800 MG Tab PO PRN (08:21)
[2018-03-10] MEDS ORDERED: Acetaminophen 500 MG Tab PO PRN ×2 (08:21)
[2018-03-10] MEDS ORDERED: Witch Hazel Medicated Pads 40/Jar TOP PRN (08:21)
[2018-03-10] MEDS ORDERED: Lanolin 100% Cream 7 GM Tube TOP PRN (08:21)
--- NOTE | 2018-03-10 08:25 | PCM.DEL ---
L & D Note - General Info Date of Service: 03/10/18 Mother's Due Date: 03/11/18 - Delivery Note Labor: Spontaneous Delivery Outcome: Livebirth Infant Delivery Method: Spontaneous Vaginal Delivery-Single Delivery Mode: Spontaneous Presentation: Vertex Nuchal Cord: None Anesthesia Type: Epidural Amniotic Fluid Description: Meconium Stained Episiotomy Type: None Laceration: None Placenta: Intact, Spontaneous Estimated Blood Loss: 100 [place]: Suctioned, Bulb Syringe, Cathether, Stimulated Second Stage Interventions: Reports: Pushing, Pulls Own Legs Back - General Info Date of Service: 03/10/18 Admission Dx/Problem (Free Text): Patient Status Order with Admit Dx/Problem 03/10/18 05:01 Patient Status [ADT] Routine 03/10/18 05:14 Patient Status [ADT] Routine Admission Diagnosis/Problem Admission Diagnosis/Problem - planned 03/10/18 05:39 21 yo EDC 03/11/2018 39 6/7wks, AB-, RI, GBS neg. Comes in active labor [facility] fluid Functional Status: Reports: Pain Controlled - Review of Systems General: Reports: No Symptoms HEENT: Reports: No Symptoms Pulmonary: Reports: No Symptoms Cardiovascular: Reports: No Symptoms Gastrointestinal: Reports: No Symptoms Genitourinary: Reports: No Symptoms Musculoskeletal: Reports: No Symptoms Skin: Reports: No Symptoms Neurological: Reports: No Symptoms Psychiatric: Reports: No Symptoms - Patient Data Weight - Most Recent: 79.379 kg Lab Results Last 24 Hours: Laboratory Results - last 24 hr 03/10/18 03/10/18 03/10/18 Range/Units 04:45 05:27 05:27 WBC 8.38 (4.0-11.0) K/uL RBC 4.08 L (4.30-5.90) M/uL Hgb 10.3 L (12.0-16.0) g/dL Hct 32.1 L (36.0-46.0) % MCV 78.7 L (80.0-98.0) fL MCH 25.2 L (27.0-32.0) pg MCHC 32.1 (31.0-37.0) g/dL RDW Std Deviation 41.7 (28.0-62.0) fl RDW Coeff of Maria [place] 15 (11.0-15.0) % Plt Count 137 L (150-400) K/uL MPV 10.00 (7.40-12.00) fL Nucleated RBC % 0.4 /100WBC Nucleated RBCs # 0 K/uL Membrane Rupture POSITIVE Blood Type AB NEGATIVE Antibody Screen NEGATIVE Med Orders - Current: Current Medications Discontinued Medications Butorphanol Tartrate (Stadol) 1 mg IVPUSH Q1H PRN PRN Reason: Pain Carboprost Tromethamine (Hemabate Ds) 250 mcg IM ASDIRECTED PRN PRN Reason: Post Hemorrhage Tranexamic Acid 1,000 mg/ (Sodium Chloride) 110 mls @ 660 mls/hr IV ONETIME PRN PRN Reason: Bleeding Lactated Ringer's (Ringers, Lactated) 1,000 mls @ 150 mls/hr IV ASDIRECTED [facility] Last Admin: 03/10/18 06:58 Dose: 125 mls/hr Oxytocin/Sodium Chloride (Oxytocin 30 Unit/500 Ml-Ns) 30 unit in 500 mls @ 999 mls/hr IV TITRATE [facility] Fentanyl/Bupivacaine HCl (Ltiizrml-Liirv-Tg 2 Mcg/Ml-0.125%) Confirm Administered Dose 100 mls @ as directed EP .STK-MED ONE Stop: 03/10/18 06:13 Lidocaine HCl (Xylocaine 1%) 50 ml INJECT .ONCE PRN PRN Reason: Laceration repair Methylergonovine Maleate (Methergine) 0.2 mg IM ASDIRECTED PRN PRN Reason: Post Hemorrhage Misoprostol (Cytotec) 200 mcg PO .ONCE PRN PRN Reason: Post Hemorrhage Nalbuphine HCl (Nubain) 10 mg IVPUSH Q1H PRN PRN Reason: Pain (severe 7-10) Sodium Chloride (Saline Flush) 10 ml FLUSH ASDIRECTED PRN PRN Reason: Keep Vein Open Sodium Chloride (Saline Flush) 2.5 ml FLUSH ASDIRECTED PRN PRN Reason: Keep Vein Open Sterile Water (Sterile Water For Irrigation) 1,000 ml IRR ASDIRECTED PRN PRN Reason: delivery - Exam General: Alert, Oriented, Cooperative, No Acute Distress Lungs: Normal Respiratory Effort GI/Abdominal Exam: Soft, Non-Tender (Female) Exam: Normal External Exam, Normal Bimanual Exam, Vaginal Bleeding Extremities: Normal Inspection, Normal Range of Motion, Non-Tender, No Pedal Edema, Normal Capillary Refill Skin: Warm, Dry, Intact Wound/Incisions: Healing Well Neurological: No New Focal Deficit, Normal Speech, Normal Tone Psy/Mental Status: Alert, Normal Affect, Normal Mood - Problem List & Annotations (1) Supervision of normal IUP (intrauterine ) in multigravida SNOMED Code(s): 412379061, 207727715, 842986740 Code(s): Z34.80 - ENCOUNTER FOR SUPRVSN OF NORMAL , UNSP TRIMESTER Status: Acute Current Visit: Yes Qualifiers: Trimester: third trimester Qualified Code(s): Z34.83 - Encounter for supervision of other normal , third trimester (2) (normal spontaneous vaginal delivery) SNOMED Code(s): 67279096 Code(s): O80 - ENCOUNTER FOR FULL-TERM UNCOMPLICATED DELIVERY Status: Acute Current Visit: Yes - Problem List Review Problem List Initiated/Reviewed/Updated: Yes - My Orders Last 24 Hours: My Active Orders 03/10/18 08:21 May Shower [RC] ASDIRECTED Up ad Carolin [RC] ASDIRECTED Vital Signs [RC] PER UNIT ROUTINE Acetaminophen [Tylenol Extra Strength] 1,000 mg PO Q4H PRN Acetaminophen [Tylenol Extra Strength] 500 mg PO Q4H PRN Benzocaine/Menthol [Dermoplast Pain Relief 20%-0.5% Independence] 78 gm TOP ASDIRECTED PRN Bisacodyl [Dulcolax] 10 mg RECTAL .ONCE PRN Docusate Sodium [Colace] 100 mg PO BID PRN Ibuprofen [Motrin] 400 mg PO Q4H PRN Ibuprofen [Motrin] 800 mg PO Q6H PRN Lanolin [Lansinoh HPA] See Dose Instructions TOP ASDIRECTED PRN Witch Adriana [Tucks] 1 pad TOP ASDIRECTED PRN oxyCODONE 5 mg PO Q2H PRN Assess Lochia [WOMSER] Per Unit Routine Assess Uterine Involution [WOMSER] Per Unit Routine Peripheral IV Discontinue [OM.PC] Routine Resuscitation Status Routine 03/10/18 Breakfast Regular Diet [DIET] - Plan Plan:: LABOR A: 21 yo EDC 03/11/2018 39 6/7wks, AB-, RI, GBS neg. Comes in active labor [facility] fluid P: Admit, epidural prn, anticipate . Will have resp at for delivery Delivery A: of viable male. APGARS and Wt pending. Intact perineum, EBL 100cc. P: Routine pp plan of care
--- NOTE | 2018-03-10 10:40 | PCM48HPAN ---
Post Anesthesia Note - EVALUATION WITHIN 48HRS OF ANESTHETIC Vital Signs in Normal Range: Yes Patient Participated in Evaluation: Yes Respiratory Function Stable: Yes Airway Patent: Yes Cardiovascular Function Stable: Yes Hydration Status Stable: Yes Pain Control Satisfactory: Yes Nausea and Vomiting Control Satisfactory: Yes Mental Status Recovered: Yes
--- NOTE | 2018-03-10 10:44 | PCM.NBDC ---
[place] Discharge Summary - Hospital Course Free Text/Narrative: Discharge home to be with in [place]. Advised to call or come to clinic if any problems. - Discharge Data Date of : 89 Delivery Time: 08: Date of Discharge: 03/10/18 Discharge Disposition: Home, Self-Care 01 Condition: Good - Discharge Diagnosis/Problem(s) (1) Supervision of normal IUP (intrauterine ) in multigravida SNOMED Code(s): 668819489, 337634798, 569609190 ICD Code: Z34.80 - ENCOUNTER FOR SUPRVSN OF NORMAL , UNSP TRIMESTER Status: Acute Current Visit: Yes Qualifiers: Trimester: third trimester Qualified Code(s): Z34.83 - Encounter for supervision of other normal , third trimester (2) (normal spontaneous vaginal delivery) SNOMED Code(s): 83460128 ICD Code: O80 - ENCOUNTER FOR FULL-TERM UNCOMPLICATED DELIVERY Status: Acute Current Visit: Yes - Discharge Plan Home Medications: Home Meds Vits #93/Iron Fum/FA [ Formula Tablet] 1 each PO 03/10/18 [ History] Instructions: Home Care Instructions for Mom, Vaginal Delivery, Care After [place] Discharge Instructions - Discharge [place] Diet: Activity: Don't Co-Sleep w/, Keep Away-Large Crowds, Keep Away-Sick People , Place on Back to Sleep Notify Provider of: Fever Over 100.4 Rectally, Diarrhea Over Twice/Day, Forceful Vomiting, Refuse 2 or More Feedings, Unusual Rashes, Persistent Crying , Persistent Irritability, New Jaundice Skin/Eyes, Worse Jaundice Skin/Eyes, No Wet Diaper Over 18 Hrs Go to Emergency Department or Call 911 If: Difficulty Breathing, Infant is Lifeless, is Limp, Skin Turns Blue in Color, Skin Turns Pale History - [place] Admission Detail [place] Admission Detail: Mother's Blood Type and RH Blood Type AB NEGATIVE 03/10/18 05:27 Delivery Method: Spontaneous Vaginal Delivery-Single Delivery Mode: Spontaneous - Maternal History Mother's Blood Type: AB Mother's Rh: Negative Nursery Info & Exam - Vital Signs Current Weight: 79.379 kg Height: 1.57 m
--- NOTE | 2018-03-10 10:46 | PCM.DCSUM1 ---
Discharge Summary - Hospital Course Free Text/Narrative:: Discharge home to be with in [place]. Advised to call or come to clinic if any problems. Diagnosis: Stroke: No - Discharge Data Discharge Date: 03/10/18 Discharge Disposition: Home, Self-Care 01 Condition: Good - Discharge Diagnosis/Problem(s) (1) Supervision of normal IUP (intrauterine ) in multigravida SNOMED Code(s): 528552088, 728034402, 343673929 ICD Code: Z34.80 - ENCOUNTER FOR SUPRVSN OF NORMAL , UNSP TRIMESTER Status: Acute Current Visit: Yes Qualifiers: Trimester: third trimester Qualified Code(s): Z34.83 - Encounter for supervision of other normal , third trimester (2) (normal spontaneous vaginal delivery) SNOMED Code(s): 52639915 ICD Code: O80 - ENCOUNTER FOR FULL-TERM UNCOMPLICATED DELIVERY Status: Acute Current Visit: Yes - Patient Instructions Diet: Usual Diet as Tolerated Activity: As Tolerated, No Strenuous Activities, Rest and Relax Today Driving: May Drive Today Showering/Bathing: May Shower Notify Provider of: Fever, Increased Pain, Swelling and Redness, Nausea and/or Vomiting Other/Special Instructions: Discharge home to be with in [place]. Advised to call or come to clinic if any problems. - Discharge Plan Home Medications: Home Meds Vits #93/Iron Fum/FA [ Formula Tablet] 1 each PO 03/10/18 [ History] Patient Handouts: Home Care Instructions for Mom, Vaginal Delivery, Care After - General Info Date of Service: 03/10/18 Admission Dx/Problem (Free Text: Patient Status Order with Admit Dx/Problem 03/10/18 05:01 Patient Status [ADT] Routine 03/10/18 05:14 Patient Status [ADT] Routine Admission Diagnosis/Problem Admission Diagnosis/Problem - planned 03/10/18 05:39 21 yo EDC 03/11/2018 39 6/7wks, AB-, RI, GBS neg. Comes in active labor [facility] fluid Functional Status: Reports: Pain Controlled, Tolerating Diet, Ambulating, Urinating - Review of Systems General: Reports: No Symptoms HEENT: Reports: No Symptoms Pulmonary: Reports: No Symptoms Cardiovascular: Reports: No Symptoms Gastrointestinal: Reports: No Symptoms Genitourinary: Reports: No Symptoms Musculoskeletal: Reports: No Symptoms Skin: Reports: No Symptoms Neurological: Reports: No Symptoms Psychiatric: Reports: No Symptoms - Patient Data Weight - Most Recent: 79.379 kg Lab Results - Last 24 hrs: Laboratory Results - last 24 hr 03/10/18 03/10/18 03/10/18 Range/Units 04:45 05:27 05:27 WBC 8.38 (4.0-11.0) K/uL RBC 4.08 L (4.30-5.90) M/uL Hgb 10.3 L (12.0-16.0) g/dL Hct 32.1 L (36.0-46.0) % MCV 78.7 L (80.0-98.0) fL MCH 25.2 L (27.0-32.0) pg MCHC 32.1 (31.0-37.0) g/dL RDW Std Deviation 41.7 (28.0-62.0) fl RDW Coeff of Maria Del Carmen 15 (11.0-15.0) % Plt Count 137 L (150-400) K/uL MPV 10.00 (7.40-12.00) fL Nucleated RBC % 0.4 /100WBC Nucleated RBCs # 0 K/uL Membrane Rupture POSITIVE Blood Type AB NEGATIVE Antibody Screen NEGATIVE Med Orders - Current: Current Medications Acetaminophen (Tylenol Extra Strength) 500 mg PO Q4H PRN PRN Reason: Pain Acetaminophen (Tylenol Extra Strength) 1,000 mg PO Q4H PRN PRN Reason: Pain Benzocaine/Menthol (Dermoplast Pain Relief 20%-0.5% [place]) 78 gm TOP ASDIRECTED PRN PRN Reason: Perineal Comfort Measure Bisacodyl (Dulcolax) 10 mg RECTAL .ONCE PRN PRN Reason: Constipation Docusate Sodium (Colace) 100 mg PO BID PRN PRN Reason: Constipation Emollient Ointment (Lansinoh Hpa) 0 gm TOP ASDIRECTED PRN PRN Reason: Sore Nipples Ibuprofen (Motrin) 400 mg PO Q4H PRN PRN Reason: Pain Ibuprofen (Motrin) 800 mg PO Q6H PRN PRN Reason: Pain Oxycodone HCl (Oxycodone) 5 mg PO Q2H PRN PRN Reason: Pain Witch Adriana (Tucks) 1 pad TOP ASDIRECTED PRN PRN Reason: comfort care Discontinued Medications Butorphanol Tartrate (Stadol) 1 mg IVPUSH Q1H PRN PRN Reason: Pain Carboprost Tromethamine (Hemabate Ds) 250 mcg IM ASDIRECTED PRN PRN Reason: Post Hemorrhage Tranexamic Acid 1,000 mg/ (Sodium Chloride) 110 mls @ 660 mls/hr IV ONETIME PRN PRN Reason: Bleeding Lactated Ringer's (Ringers, Lactated) 1,000 mls @ 150 mls/hr IV ASDIRECTED [facility] Last Admin: 03/10/18 06:58 Dose: 125 mls/hr Oxytocin/Sodium Chloride (Oxytocin 30 Unit/500 Ml-Ns) 30 unit in 500 mls @ 999 mls/hr IV TITRATE [facility] Last Admin: 03/10/18 08:08 Dose: 999 mls/hr Fentanyl/Bupivacaine HCl (Swzlvadp-Stpmg-Gl 2 Mcg/Ml-0.125%) Confirm Administered Dose 100 mls @ as directed EP .[facility]-MED ONE Stop: 03/10/18 06:13 Lidocaine HCl (Xylocaine 1%) 50 ml INJECT .ONCE PRN PRN Reason: Laceration repair Methylergonovine Maleate (Methergine) 0.2 mg IM ASDIRECTED PRN PRN Reason: Post Hemorrhage Misoprostol (Cytotec) 200 mcg PO .ONCE PRN PRN Reason: Post Hemorrhage Nalbuphine HCl (Nubain) 10 mg IVPUSH Q1H PRN PRN Reason: Pain (severe 7-10) Sodium Chloride (Saline Flush) 10 ml FLUSH ASDIRECTED PRN PRN Reason: Keep Vein Open Sodium Chloride (Saline Flush) 2.5 ml FLUSH ASDIRECTED PRN PRN Reason: Keep Vein Open Sterile Water (Sterile Water For Irrigation) 1,000 ml IRR ASDIRECTED PRN PRN Reason: delivery - Exam General: Reports: Alert, Oriented, Cooperative, No Acute Distress Lungs: Reports: Normal Respiratory Effort GI/Abdominal Exam: Normal Bowel Sounds, Soft, Non-Tender, No Organomegaly, No Distention, No Abnormal Bruit, No Mass, Pelvis Stable (Female) Exam: Vaginal Bleeding Rectal (Female) Exam: Deferred Back Exam: Reports: Normal Inspection, Full Range of Motion Extremities: Normal Inspection, Normal Range of Motion, Non-Tender, No Pedal Edema, Normal Capillary Refill Skin: Reports: Warm, Dry, Intact Wound/Incisions: Reports: Healing Well Neurological: Reports: No New Focal Deficit, Normal Gait, Normal Speech, Normal Tone Psy/Mental Status: Reports: Alert, Normal Affect, Normal Mood
== END 2018-03-10 12:55 | disposition home or self-care (01) | DRG 560 ==
LOC: MW.OBCHECK 04:22 → MW.OB 04:22 → MW.OBCHECK 05:14 → MW.OB 05:14 → OBSVTOIN 08:07
PROVIDERS: ADMIT Obstetrics & Gynecology; ATTEND Obstetrics & Gynecology
PROC: 10E0XZZ Delivery of Products of Conception, External Approach (ICD-10-PCS; principal; 2018-03-10)
DX: O42.02 Full-term premature rupture of membranes, onset of labor within 24 hours of rupture (principal); Z3A.39 39 weeks gestation of pregnancy; Z37.0 Single live birth; Z88.0 Allergy status to penicillin
CPT/HCPCS: 36415; 51702; 59025; 59409; 84112; 85027; 85460; 86850; 86900; 86901; J2590; J7120

== ENCOUNTER 2021-03-24 04:22 | Inpatient (IN) | payer BC ==
[2021-03-24] MEDS ORDERED: Sodium Chloride 0.9% 10 ML SDV IV PRN (04:46)
[2021-03-24] MEDS ORDERED: Carboprost Tromethamine 250 MCG/1 ML Amp IM PRN (04:46)
[2021-03-24] MEDS ORDERED: Tranexamic Acid 1,000 MG in Sodium Chloride 0.9% 100 ML IV PRN (04:46)
[2021-03-24] MEDS ORDERED: Butorphanol 1 MG/ML SDV IVPUSH PRN (04:46)
[2021-03-24] MEDS ORDERED: Sodium Chloride 0.9% 10 ML Syringe FLUSH PRN (04:46)
[2021-03-24] MEDS ORDERED: Misoprostol 200 MCG Tab PO PRN (04:46)
[2021-03-24] MEDS ORDERED: Sodium Chloride 0.9% 2.5 ML Syringe FLUSH PRN (04:46)
[2021-03-24] MEDS ORDERED: Methylergonovine 0.2 MG/1 ML Amp IM PRN (04:46)
[2021-03-24] MEDS ORDERED: Nalbuphine 10 MG/1 ML Vial IVPUSH PRN (04:46)
[2021-03-24] MEDS ORDERED: Water For Irrigation,Sterile 1,000 ML Container IRR PRN (04:46)
[2021-03-24] MEDS ORDERED: Lidocaine 1% 50 ML MDV INJECT PRN (04:46)
[2021-03-24] MEDS: Oxytocin/0.9 % Sodium Chloride 30 UNIT/500 ML BAG IV SCH ×2 (04:48→05:55)
[2021-03-24] MEDS ORDERED: Oxytocin/0.9 % Sodium Chloride 30 UNIT/500 ML BAG ONE ×2 (04:50→05:50)
[2021-03-24] MEDS ORDERED: Lactated Ringers 1,000 ML IV SCH (05:00)
--- NOTE | 2021-03-24 05:11 | PCM.LDHP ---
L&D History of Present Illness - General Date of Service: 03/24/21 Admit Problem/Dx: Patient Status Order with Admit Dx/Problem 03/24/21 04:46 Patient Status [ADT] Routine Admission Diagnosis/Problem Admission Diagnosis/Problem Planned 03/24/21 05:06 presenting to L&D in active labor at 40 2/7 weeks (NEGRA: 03/22/21 by LMP and early ultrasound). Upon presentation to L&D, she was vertex, 9 cm and 0 station per nurse report. AB-, Rubella immune, GBS positive. Source of Information: Patient History Limitations: Reports: No Limitations - Related Data Allergies/Adverse Reactions: Allergies Allergy/AdvReac Type Severity Reaction Status Date / Time Penicillins Allergy Rash Verified 03/24/21 04:44 Home Medications: Home Meds Vits #93/Iron Fum/FA [ Formula Tablet] 1 each PO 03/10/18 [History] Past Medical History - Past Health History Medical/Surgical History: Denies Medical/Surgical History HEENT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: None Cardiovascular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: None Respiratory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: None Gastrointestinal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: GERD Genitourinary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: None RN EMERGENCY ROOM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: , 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) Other OB/BYN History: chlamydia diagnosed in aug 2015 Musculoskeletal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: None Neurological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: None Psychiatric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: None Endocrine/Metabolic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: Obesity/BMI 30+ Hematologic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: None, 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) (Hx of thrombocytopenia) Immunologic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: None Oncologic (Cancer)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: None Dermatologic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: None - Infectious Disease History Infectious Disease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: None Social & Family History - Family History Family Medical History: No Pertinent Family History Respiratory: Reports: COPD, 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) Other Respiratory Family Hisory: emphysema Oncologic: Reports: Lung - Caffeine Use Caffeine Use: Reports: Coffee, Soda H&P Review of Systems - Review of Systems: Review Of Systems: See Below General: Reports: No Symptoms HEENT: Reports: No Symptoms Pulmonary: Reports: No Symptoms Cardiovascular: Reports: No Symptoms Gastrointestinal: Reports: No Symptoms Genitourinary: Reports: No Symptoms Musculoskeletal: Reports: No Symptoms Skin: Reports: No Symptoms Psychiatric: Reports: No Symptoms Neurological: Reports: No Symptoms Hematologic/Lymphatic: Reports: No Symptoms Immunologic: Reports: No Symptoms L&D Exam - Exam Exam: See Below - Vital Signs Weight: 161 lb - OB Specific Movement: Active Heart Tones: Present Heart Rate (FHR) Variability: Moderate (6-25 bmp) Presentation: Vertex - Levine Score Levine Score Cervix Position: Anterior Levine Score Consistency: Soft Levine Score Effacement: >80% Levine Score Dilation: > 5 cm Levine Score 's Station: -1 ,0 Levine Score Total: 12 - Exam General: Alert, Oriented, Cooperative Lungs: Normal Respiratory Effort Cardiovascular: Regular Rate, Regular Rhythm GI/Abdominal Exam: Soft, Non-Tender Rectal Exam: Deferred Genitourinary: Deferred Back Exam: Normal Inspection, Full Range of Motion Extremities: Normal Inspection, Normal Range of Motion, Non-Tender, Normal Capillary Refill Skin: Warm, Dry, Intact Neurological: Normal Speech, Normal Tone, Sensation Intact Psychiatric: Alert, Normal Affect, Normal Mood - Problem List (1) Supervision of normal IUP (intrauterine ) in multigravida SNOMED Code(s): 795305486, 659719818, 949828464 ICD Code: Z34.80 - ENCOUNTER FOR SUPRVSN OF NORMAL , UNSP TRIMESTER Status: Acute Priority: High Current Visit: Yes Qualifiers: Trimester: third trimester Qualified Code(s): Z34.83 - Encounter for supervision of other normal , third trimester Problem List Initiated/Reviewed/Updated: Yes Orders Last 24hrs: Active Orders 24 hr Category Date Time Status Patient Status [ADT] Routine ADT 03/24/21 04:46 Active Heart Tones [RC] CONTINUOUS Care 03/24/21 04:46 Active Non Stress Test [RC] PER UNIT ROUTINE Care 03/24/21 04:46 Active May Shower [RC] ASDIRECTED Care 03/24/21 04:46 Active Notify Provider [RC] PRN Care 03/24/21 04:46 Active Up ad Carolin [RC] ASDIRECTED Care 03/24/21 04:46 Active Vaginal Exam [RC] PRN Care 03/24/21 04:46 Active Vital Signs [RC] PER UNIT ROUTINE Care 03/24/21 04:46 Active CBC W/O DIFF,HEMOGRAM [HEME] Routine Lab 03/24/21 04:46 Ordered RPR (SYPHILIS SERO) W/ RFLX [REF] Routine Lab 03/24/21 04:46 Ordered TYPE AND SCREEN [BBK] Routine Lab 03/24/21 04:46 Ordered Butorphanol [Stadol] Med 03/24/21 04:46 Active 1 mg IVPUSH Q1H PRN Carboprost Tromethamine [Hemabate DS] Med 03/24/21 04:46 Active 250 mcg IM ASDIRECTED PRN Lactated Ringers [Ringers, Lactated] 1,000 ml Med 03/24/21 05:00 Active IV ASDIRECTED Lidocaine 1% [Xylocaine 1%] Med 03/24/21 04:46 Active 50 ml INJECT ONETIME PRN Methylergonovine [Methergine] Med 03/24/21 04:46 Active 0.2 mg IM ASDIRECTED PRN Nalbuphine [Nubain] Med 03/24/21 04:46 Active 10 mg IVPUSH Q1H PRN Oxytocin/0.9 % Sodium Chloride [Oxytocin 30 Unit/500 ML Med 03/24/21 05:00 Active -NS] 30 unit in 500 ml IV TITRATE Sodium Chloride 0.9% [Normal Saline] Med 03/24/21 04:46 Active 10 ml IV ASDIRECTED PRN Sodium Chloride 0.9% [Saline Flush] Med 03/24/21 04:46 Active 10 ml FLUSH ASDIRECTED PRN Sodium Chloride 0.9% [Saline Flush] Med 03/24/21 04:46 Active 2.5 ml FLUSH ASDIRECTED PRN Tranexamic Acid [Cyklokapron] 1,000 mg Med 03/24/21 04:46 Active Sodium Chloride 0.9% [Normal Saline] 100 ml IV ONETIME Water For Irrigation,Sterile [Sterile Water for Med 03/24/21 04:46 Active Irrigation] 1,000 ml IRR ASDIRECTED PRN miSOPROStoL [Cytotec] Med 03/24/21 04:46 Active 200 mcg PO ONETIME PRN Scalp Electrode [WOMSER] Per Unit Routine Oth 03/24/21 04:46 Ordered Peripheral IV Insertion Adult [OM.PC] Routine Oth 03/24/21 04:46 Ordered Resuscitation Status Routine Resus Stat 03/24/21 04:46 Ordered Medication Orders Butorphanol Tartrate (Butorphanol 1 Mg/Ml Sdv) 1 mg IVPUSH Q1H PRN PRN Reason: Pain (severe 7-10) Carboprost Tromethamine (Carboprost Tromethamine 250 Mcg/1 Ml Amp) 250 mcg IM ASDIRECTED PRN PRN Reason: Post Hemorrhage Oxytocin/Sodium Chloride (Oxytocin 30 Unit/500 Ml-Ns) 30 unit in 500 mls @ 500 mls/hr IV TITRATE JAYANT Tranexamic Acid 1,000 mg/ (Sodium Chloride) 110 mls @ 660 mls/hr IV ONETIME PRN PRN Reason: Bleeding Lactated Ringer's (Ringers, Lactated) 1,000 mls @ 150 mls/hr IV ASDIRECTED JAYANT Lidocaine HCl (Lidocaine 1% 50 Ml Mdv) 50 ml INJECT ONETIME PRN PRN Reason: Laceration repair Methylergonovine Maleate (Methylergonovine 0.2 Mg/1 Ml Amp) 0.2 mg IM ASDIRECTED PRN PRN Reason: Post Hemorrhage Misoprostol (Misoprostol 200 Mcg Tab) 200 mcg PO ONETIME PRN PRN Reason: Post Hemorrhage Nalbuphine HCl (Nalbuphine 10 Mg/1 Ml Vial) 10 mg IVPUSH Q1H PRN PRN Reason: Pain (severe 7-10) Sodium Chloride (Sodium Chloride 0.9% 10 Ml Syringe) 10 ml FLUSH ASDIRECTED PRN PRN Reason: Keep Vein Open Sodium Chloride (Sodium Chloride 0.9% 2.5 Ml Syringe) 2.5 ml FLUSH ASDIRECTED PRN PRN Reason: Keep Vein Open Sodium Chloride (Sodium Chloride 0.9% 10 Ml Sdv) 10 ml IV ASDIRECTED PRN PRN Reason: IV Use Sterile Water (Water For Irrigation,Sterile 1,000 Ml Container) 1,000 ml IRR ASDIRECTED PRN PRN Reason: delivery Assessment/Plan Comment:: Admit A: presenting to L&D in active labor at 40 2/7 weeks (NEGRA: 03/22/21 by LMP and early ultrasound). Upon presentation to L&D, she was vertex, 9 cm and 0 station per nurse report. AB-, Rubella immune, GBS positive. P: Anticipate ; Dr. Brett burgess.
[2021-03-24] MEDS ORDERED: Acetaminophen 500 MG Tab PO PRN (05:12)
[2021-03-24] MEDS ORDERED: Bisacodyl 10 MG Supp RECTAL PRN (05:12)
[2021-03-24] MEDS ORDERED: Docusate Sodium 100 MG Cap PO PRN (05:12)
[2021-03-24] MEDS ORDERED: Lanolin 100% Cream 7 GM Tube TOP PRN (05:12)
[2021-03-24] MEDS ORDERED: Ibuprofen 400 MG Tab PO PRN (05:12)
[2021-03-24] MEDS ORDERED: Benzocaine/Menthol 20%-0.5% Spray 78 GM Cannister TOP PRN (05:12)
[2021-03-24] MEDS ORDERED: oxyCODONE 5 MG Tab PO PRN (05:12)
[2021-03-24] MEDS ORDERED: Witch Hazel Medicated Pads 40/Jar TOP PRN (05:12)
--- NOTE | 2021-03-24 05:18 | PCM.DEL ---
L & D Note - General Info Date of Service: 03/24/21 Mother's Due Date: 12/21/20 - Delivery Note Labor: Spontaneous Delivery Outcome: Livebirth Infant Delivery Method: Spontaneous Vaginal Delivery-Single Presentation: Vertex Nuchal Cord: Present (x1 somersaulted through) Anesthesia Type: None Episiotomy Type: None Laceration: None Placenta: Intact, Spontaneous Cord: 3 Vessels Estimated Blood Loss: 300 Resuscitation Needed: No Score 1 min: 8 Score 5 min: 9 Second Stage Interventions: Reports: Second Nurse Assessed Progress of Descent, Second Nurse Reviewed Contraction Pattern, Second Nurse Reviewed Heart Tones, Encouragement Given, Pushing Effectively, Pushing, Pulls Own Legs Back Delivery Comments (Free Text/Narrative):: viable male; head delivered with good pushing, nuchal x1, somersaulted through; shoulders and body delivered easily; baby immediately to mom's abdomen [id number] to assessment; APGARs 8/9; weight pending; cord doubly clamped, cut by this provider after approximately one minute; placenta delivered grossly intact, ruddy, 3VC; EBL 300 mL; perineum intact; pitocin to IVF; mom and baby left in stable condition with nurse at beside for assessment - General Info Date of Service: 03/24/21 Admission Dx/Problem (Free Text): Patient Status Order with Admit Dx/Problem 03/24/21 04:46 Patient Status [ADT] Routine Admission Diagnosis/Problem Admission Diagnosis/Problem Planned 03/24/21 05:06 presenting to L&D in active labor at 40 2/7 weeks (NEGRA: 03/22/21 by LMP and early ultrasound). Upon presentation to L&D, she was vertex, 9 cm and 0 station per nurse report. AB-, Rubella immune, GBS positive. Functional Status: Reports: Pain Controlled - Review of Systems General: Reports: No Symptoms HEENT: Reports: No Symptoms Pulmonary: Reports: No Symptoms Cardiovascular: Reports: No Symptoms Gastrointestinal: Reports: No Symptoms Genitourinary: Reports: No Symptoms Musculoskeletal: Reports: No Symptoms Skin: Reports: No Symptoms Neurological: Reports: No Symptoms Psychiatric: Reports: No Symptoms - Patient Data Weight - Most Recent: 161 lb I&O - Last 24 Hours: Intake & Output 03/23/21 03/23/21 03/24/21 14:59 22:59 06:59 Intake Total 200 Balance 200 Med Orders - Current: Current Medications Discontinued Medications Butorphanol Tartrate (Butorphanol 1 Mg/Ml Sdv) 1 mg IVPUSH Q1H PRN PRN Reason: Pain (severe 7-10) Carboprost Tromethamine (Carboprost Tromethamine 250 Mcg/1 Ml Amp) 250 mcg IM ASDIRECTED PRN PRN Reason: Post Hemorrhage Oxytocin/Sodium Chloride (Oxytocin 30 Unit/500 Ml-Ns) Confirm Administered Dose 30 unit in 500 mls @ as directed .ROUTE .[facility]-MED ONE Stop: 03/24/21 04:51 Oxytocin/Sodium Chloride (Oxytocin 30 Unit/500 Ml-Ns) 30 unit in 500 mls @ 500 mls/hr IV TITRATE [facility] Last Admin: 03/24/21 04:48 Dose: 500 mls/hr Documented by: Tranexamic Acid 1,000 mg/ (Sodium Chloride) 110 mls @ 660 mls/hr IV ONETIME PRN PRN Reason: Bleeding Lactated Ringer's (Ringers, Lactated) 1,000 mls @ 150 mls/hr IV ASDIRECTED [facility] Last Admin: 03/24/21 04:39 Dose: 999 mls/hr Documented by: Lidocaine HCl (Lidocaine 1% 50 Ml Mdv) 50 ml INJECT ONETIME PRN PRN Reason: Laceration repair Methylergonovine Maleate (Methylergonovine 0.2 Mg/1 Ml Amp) 0.2 mg IM ASDIRECTED PRN PRN Reason: Post Hemorrhage Misoprostol (Misoprostol 200 Mcg Tab) 200 mcg PO ONETIME PRN PRN Reason: Post Hemorrhage Nalbuphine HCl (Nalbuphine 10 Mg/1 Ml Vial) 10 mg IVPUSH Q1H PRN PRN Reason: Pain (severe 7-10) Sodium Chloride (Sodium Chloride 0.9% 10 Ml Syringe) 10 ml FLUSH ASDIRECTED PRN PRN Reason: Keep Vein Open Sodium Chloride (Sodium Chloride 0.9% 2.5 Ml Syringe) 2.5 ml FLUSH ASDIRECTED PRN PRN Reason: Keep Vein Open Sodium Chloride (Sodium Chloride 0.9% 10 Ml Sdv) 10 ml IV ASDIRECTED PRN PRN Reason: IV Use Sterile Water (Water For Irrigation,Sterile 1,000 Ml Container) 1,000 ml IRR ASDIRECTED PRN PRN Reason: delivery - Exam General: Alert, Oriented, Cooperative, No Acute Distress Lungs: Normal Respiratory Effort Cardiovascular: Regular Rate, Regular Rhythm GI/Abdominal Exam: Soft, Non-Tender (Female) Exam: Normal External Exam Back Exam: Normal Inspection, Full Range of Motion Extremities: Normal Inspection, Normal Range of Motion, Non-Tender, Normal Capillary Refill Skin: Warm, Dry, Intact Neurological: No New Focal Deficit, Normal Speech, Normal Tone, Sensation Intact Psy/Mental Status: Alert, Normal Affect, Normal Mood - Problem List & Annotations (1) Supervision of normal IUP (intrauterine ) in multigravida SNOMED Code(s): 489201914, 895885066, 236136363 Code(s): Z34.80 - ENCOUNTER FOR SUPRVSN OF NORMAL , UNSP TRIMESTER Status: Acute Priority: High Current Visit: Yes Qualifiers: Trimester: third trimester Qualified Code(s): Z34.83 - Encounter for supervision of other normal , third trimester (2) (spontaneous vaginal delivery) SNOMED Code(s): 656478743 Code(s): O80 - ENCOUNTER FOR FULL-TERM UNCOMPLICATED DELIVERY Status: Acute Priority: High Current Visit: Yes - Problem List Review Problem List Initiated/Reviewed/Updated: Yes - My Orders Last 24 Hours: My Active Orders 03/24/21 05:12 Patient Status [ADT] Routine May Shower [RC] ASDIRECTED Up ad Carolin [RC] ASDIRECTED Vital Signs [RC] PER UNIT ROUTINE Acetaminophen [Tylenol Extra Strength] 1,000 mg PO Q4H PRN Acetaminophen [Tylenol Extra Strength] 500 mg PO Q4H PRN Benzocaine/Menthol [Dermoplast Pain Relief 20%-0.5% [place]] 78 gm TOP ASDIRECTED PRN Docusate Sodium [Colace] 100 mg PO Q12H PRN Ibuprofen [Motrin] 400 mg PO Q4H PRN Ibuprofen [Motrin] 800 mg PO Q6H PRN Lanolin [Lansinoh HPA] See Dose Instructions TOP ASDIRECTED PRN bisacodyL [Dulcolax] 10 mg RECTAL ONETIME PRN oxyCODONE 5 mg PO Q2H PRN witch Sofi [Tucks] 1 pad TOP ASDIRECTED PRN Assess Lochia [WOMSER] Per Unit Routine Assess Uterine Involution [WOMSER] Per Unit Routine Peripheral IV Discontinue [OM.PC] Routine Resuscitation Status Routine 03/24/21 Breakfast Regular Diet [DIET] 03/25/21 05:11 HEMOGLOBIN/HEMATOCRIT,HH [HEME] Timed - Plan Plan:: Admit A: presenting to L&D in active labor at 40 2/7 weeks (NEGRA: 03/22/21 by LMP and early ultrasound). Upon presentation to L&D, she was vertex, 9 cm and 0 station per nurse report. AB-, Rubella immune, GBS positive. P: Anticipate ; Dr. West updated. Delivery A: viable male; head delivered with good pushing, nuchal x1, somersaulted through; shoulders and body delivered easily; baby immediately to mom's abdomen [id number] to assessment; APGARs 8/9; weight pending; cord doubly clamped, cut by this provider after approximately one minute; placenta delivered grossly intact, fox, 3VC; EBL 300 mL; perineum intact; pitocin to IVF; mom and baby left in stable condition with nurse at beside for assessment P: Routine plan of care; Dr. West updated.
[2021-03-24] MEDS: Ibuprofen 800 MG Tab PO PRN ×2 (05:27→13:53)
[2021-03-24] MEDS: Acetaminophen 500 MG Tab PO PRN (10:39)
[2021-03-25] MEDS: Acetaminophen 500 MG Tab PO PRN ×2 (02:30→12:43)
[2021-03-25] MEDS: Ibuprofen 800 MG Tab PO PRN ×2 (07:11→16:57)
--- NOTE | 2021-03-25 08:29 | PCM.PNPP ---
- General Info Date of Service: 03/25/21 Admission Dx/Problem (Free Text): Patient Status Order with Admit Dx/Problem 03/24/21 04:46 Patient Status [ADT] Routine Admission Diagnosis/Problem Admission Diagnosis/Problem Planned 03/24/21 05:06 presenting to L&D in active labor at 40 2/7 weeks (NEGRA: 03/22/21 by LMP and early ultrasound). Upon presentation to L&D, she was vertex, 9 cm and 0 station per nurse report. AB-, Rubella immune, GBS positive. Functional Status: Reports: Pain Controlled, Tolerating Diet, Ambulating, Urinating - Review of Systems General: Reports: No Symptoms HEENT: Reports: No Symptoms Pulmonary: Reports: No Symptoms Cardiovascular: Reports: No Symptoms Gastrointestinal: Reports: No Symptoms Genitourinary: Reports: No Symptoms Musculoskeletal: Reports: No Symptoms Skin: Reports: No Symptoms Neurological: Reports: No Symptoms Psychiatric: Reports: No Symptoms - Patient Data Vital Signs - Most Recent: Last Vital Signs Temp 96.9 F 03/25/21 06:08 Pulse 73 03/25/21 06:08 Resp 16 03/25/21 06:08 BP 99/57 L 03/25/21 06:08 Pulse Ox 95 03/25/21 06:08 Weight - Most Recent: 161 lb Lab Results - Last 24 Hours: Laboratory Results - last 24 hr 03/25/21 Range/Units 05:15 Hgb 10.7 L (12.0-16.0) g/dL Hct 31.3 L (36.0-46.0) % Med Orders - Current: Current Medications Acetaminophen (Acetaminophen 500 Mg Tab) 500 mg PO Q4H PRN PRN Reason: Pain (mild 1-3) Acetaminophen (Acetaminophen 500 Mg Tab) 1,000 mg PO Q4H PRN PRN Reason: Pain (mild 1-3) Last Admin: 03/25/21 02:30 Dose: 1,000 mg Documented by: Benzocaine/Menthol (Benzocaine/Menthol 20%-0.5% [place] 78 Gm Cannister) 78 gm TOP ASDIRECTED PRN PRN Reason: Perineal Comfort Measure Last Admin: 03/24/21 05:26 Dose: 1 tub Documented by: Bisacodyl (Bisacodyl 10 Mg Supp) 10 mg RECTAL ONETIME PRN PRN Reason: Constipation Docusate Sodium (Docusate Sodium 100 Mg Cap) 100 mg PO Q12H PRN PRN Reason: Constipation Emollient Ointment (Lanolin 100% Cream 7 Gm Tube) 0 gm TOP ASDIRECTED PRN PRN Reason: Sore Nipples Ibuprofen (Ibuprofen 400 Mg Tab) 400 mg PO Q4H PRN PRN Reason: Pain (mild 1-3) Ibuprofen (Ibuprofen 800 Mg Tab) 800 mg PO Q6H PRN PRN Reason: Pain (mild 1-3) Last Admin: 03/25/21 07:11 Dose: 800 mg Documented by: Oxycodone HCl (Oxycodone 5 Mg Tab) 5 mg PO Q2H PRN PRN Reason: Pain (severe 7-10) Witch Adriana (Witch Adriana Medicated Pads 40/Jar) 1 pad TOP ASDIRECTED PRN PRN Reason: comfort care Last Admin: 03/24/21 05:26 Dose: 1 tub Documented by: Discontinued Medications Butorphanol Tartrate (Butorphanol 1 Mg/Ml Sdv) 1 mg IVPUSH Q1H PRN PRN Reason: Pain (severe 7-10) Carboprost Tromethamine (Carboprost Tromethamine 250 Mcg/1 Ml Amp) 250 mcg IM ASDIRECTED PRN PRN Reason: Post Hemorrhage Oxytocin/Sodium Chloride (Oxytocin 30 Unit/500 Ml-Ns) Confirm Administered Dose 30 unit in 500 mls @ as directed .ROUTE .STK-MED ONE Stop: 03/24/21 04:51 Last Admin: 03/24/21 14:44 Dose: Not Given Documented by: Oxytocin/Sodium Chloride (Oxytocin 30 Unit/500 Ml-Ns) 30 unit in 500 mls @ 500 mls/hr IV TITRATE [facility] Last Admin: 03/24/21 05:55 Dose: 500 mls/hr Documented by: Tranexamic Acid 1,000 mg/ (Sodium Chloride) 110 mls @ 660 mls/hr IV ONETIME PRN PRN Reason: Bleeding Lactated Ringer's (Ringers, Lactated) 1,000 mls @ 150 mls/hr IV ASDIRECTED [facility] Last Admin: 03/24/21 04:39 Dose: 999 mls/hr Documented by: Oxytocin/Sodium Chloride (Oxytocin 30 Unit/500 Ml-Ns) Confirm Administered Dose 30 unit in 500 mls @ as directed .ROUTE .[employer] ONE Stop: 03/24/21 05:51 Last Admin: 03/24/21 14:31 Dose: Not Given Documented by: Lidocaine HCl (Lidocaine 1% 50 Ml Mdv) 50 ml INJECT ONETIME PRN PRN Reason: Laceration repair Methylergonovine Maleate (Methylergonovine 0.2 Mg/1 Ml Amp) 0.2 mg IM ASDIRECTED PRN PRN Reason: Post Hemorrhage Misoprostol (Misoprostol 200 Mcg Tab) 200 mcg PO ONETIME PRN PRN Reason: Post Hemorrhage Nalbuphine HCl (Nalbuphine 10 Mg/1 Ml Vial) 10 mg IVPUSH Q1H PRN PRN Reason: Pain (severe 7-10) Sodium Chloride (Sodium Chloride 0.9% 10 Ml Syringe) 10 ml FLUSH ASDIRECTED PRN PRN Reason: Keep Vein Open Sodium Chloride (Sodium Chloride 0.9% 2.5 Ml Syringe) 2.5 ml FLUSH ASDIRECTED PRN PRN Reason: Keep Vein Open Sodium Chloride (Sodium Chloride 0.9% 10 Ml Sdv) 10 ml IV ASDIRECTED PRN PRN Reason: IV Use Sterile Water (Water For Irrigation,Sterile 1,000 Ml Container) 1,000 ml IRR ASDIRECTED PRN PRN Reason: delivery - Infant Interaction Disposition, : at Bedside Infant Feeding: Breastfed Infant; Nursed Well Support Person: - Recovery Exam Fundal Tone: Firm Fundal Level: 2 Fingerbreadths Below Umbilicus Fundal Placement: Midline Lochia Amount: Scant Lochia Color: Rubra/Red Perineum Description: Intact, Minimal Bruising/Swelling, Other (see below) Other Perinuem Description: [place] Episiotomy/Laceration: None Bladder Status: Voiding - Exam General: Alert, Oriented, Cooperative, No Acute Distress Lungs: Normal Respiratory Effort Cardiovascular: Regular Rate, Regular Rhythm GI/Abdominal Exam: Soft, Non-Tender Extremities: Normal Inspection, Normal Range of Motion, Non-Tender, Normal Capillary Refill Skin: Warm, Dry, Intact Neurological: No New Focal Deficit, Normal Speech, Normal Tone, Sensation Intact Psy/Mental Status: Alert, Normal Affect, Normal Mood - Problem List & Annotations (1) Supervision of normal IUP (intrauterine ) in multigravida SNOMED Code(s): 550184985, 214400710, 493805520 Code(s): Z34.80 - ENCOUNTER FOR SUPRVSN OF NORMAL , UNSP TRIMESTER Status: Acute Priority: High Current Visit: Yes Qualifiers: Trimester: third trimester Qualified Code(s): Z34.83 - Encounter for supervision of other normal , third trimester (2) (spontaneous vaginal delivery) SNOMED Code(s): 529830158 Code(s): O80 - ENCOUNTER FOR FULL-TERM UNCOMPLICATED DELIVERY Status: Acute Priority: High Current Visit: Yes - Problem List Review Problem List Initiated/Reviewed/Updated: Yes - Plan Plan:: Admit A: presenting to L&D in active labor at 40 2/7 weeks (NEGRA: 03/22/21 by LMP and early ultrasound). Upon presentation to L&D, she was vertex, 9 cm and 0 station per nurse report. AB-, Rubella immune, GBS positive. P: Anticipate ; Dr. West updated. Delivery A: viable male; head delivered with good pushing, nuchal x1, somersaulted through; shoulders and body delivered easily; baby immediately to mom's abdomen [id number] to assessment; APGARs 8/9; weight pending; cord doubly clamped, cut by this provider after approximately one minute; placenta delivered grossly i ntact, fox, 3VC; EBL 300 mL; perineum intact; pitocin to IVF; mom and baby left in stable condition with nurse at beside for assessment P: Routine plan of care; Dr. West updated. PP Day 1 A: Ambulating, voiding, and tolerating diet. well and bonding well with baby. Small lochia rubra, no clots. No concerns/questions at this time. P: Continue routine plan of care. Anticipate discharge tomorrow AM.
[2021-03-25 16:20] VITALS: BP 99/64; PULSE 71
--- NOTE | 2021-03-25 17:09 | PCM.DCSUM1 ---
Discharge Summary - Hospital Course Free Text/Narrative:: Discharge home with baby. Follow up in the clinic in six weeks for routine visit; sooner, if needed. Diagnosis: Stroke: No Modified [place] Scale: No Symptoms at All Modified [place] Scale Score: 0 - Discharge Data Discharge Date: 03/25/21 Discharge Disposition: Home, Self-Care 01 Condition: Good - Referral to Home Health Primary Care Physician: PCP None - Discharge Diagnosis/Problem(s) (1) Supervision of normal IUP (intrauterine ) in multigravida SNOMED Code(s): 247532586, 194185087, 423800699 ICD Code: Z34.80 - ENCOUNTER FOR SUPRVSN OF NORMAL , UNSP TRIMESTER Status: Acute Priority: High Current Visit: Yes Qualifiers: Trimester: third trimester Qualified Code(s): Z34.83 - Encounter for supervision of other normal , third trimester (2) (spontaneous vaginal delivery) SNOMED Code(s): 518521494 ICD Code: O80 - ENCOUNTER FOR FULL-TERM UNCOMPLICATED DELIVERY Status: Acute Priority: High Current Visit: Yes - Patient Instructions Diet: Regular Diet as Tolerated, Drink 8-10+ Glasses/Day Activity: As Tolerated, No Strenuous Activities, Rest and Relax Today Driving: May Drive Today Showering/Bathing: May Shower Notify Provider of: Fever, Increased Pain, Swelling and Redness, Drainage, Nausea and/or Vomiting - Discharge Plan *PRESCRIPTION DRUG MONITORING PROGRAM REVIEWED*: Not Applicable *COPY OF PRESCRIPTION DRUG MONITORING REPORT IN PATIENT YAJAIRA: Not Applicable Prescriptions/Med Rec: Lanolin [Lansinoh HPA] 1 tube TOP ASDIRECTED PRN #2 tube PRN Reason: Sore Nipples Ibuprofen [Motrin] 800 mg PO Q6H PRN #60 tablet PRN Reason: Pain (Mild 1-3) Home Medications: Home Meds Vits #93/Iron Fum/FA [ Formula Tablet] 1 each PO 03/10/18 [History] Ibuprofen [Motrin] 800 mg PO Q6H PRN #60 tablet 03/25/21 [Rx] Lanolin [Lansinoh HPA] 1 tube TOP ASDIRECTED PRN #2 tube 03/25/21 [Rx] - Discharge Summary/Plan Comment DC Time >30 min.: Yes - General Info Date of Service: 03/25/21 Admission Dx/Problem (Free Text: Patient Status Order with Admit Dx/Problem 03/24/21 04:46 Patient Status [ADT] Routine Admission Diagnosis/Problem Admission Diagnosis/Problem Planned 03/24/21 05:06 presenting to L&D in active labor at 40 2/7 weeks (NEGRA: 03/22/21 by LMP an d early ultrasound). Upon presentation to L&D, she was vertex, 9 cm and 0 station per nurse report. AB-, Rubella immune, GBS positive. Functional Status: Reports: Pain Controlled, Tolerating Diet, Ambulating, Urinating - Review of Systems General: Reports: No Symptoms HEENT: Reports: No Symptoms Pulmonary: Reports: No Symptoms Cardiovascular: Reports: No Symptoms Gastrointestinal: Reports: No Symptoms Genitourinary: Reports: No Symptoms Musculoskeletal: Reports: No Symptoms Skin: Reports: No Symptoms Neurological: Reports: No Symptoms Psychiatric: Reports: No Symptoms - Patient Data Vitals - Most Recent: Last Vital Signs Temp 97.1 F 03/25/21 16:07 Pulse 71 03/25/21 16:07 Resp 15 03/25/21 16:07 BP 99/64 03/25/21 16:07 Pulse Ox 98 03/25/21 16:07 Weight - Most Recent: 161 lb Lab Results - Last 24 hrs: Laboratory Results - last 24 hr 03/25/21 Range/Units 05:15 Hgb 10.7 L (12.0-16.0) g/dL Hct 31.3 L (36.0-46.0) % Med Orders - Current: Current Medications Acetaminophen (Acetaminophen 500 Mg Tab) 500 mg PO Q4H PRN PRN Reason: Pain (mild 1-3) Acetaminophen (Acetaminophen 500 Mg Tab) 1,000 mg PO Q4H PRN PRN Reason: Pain (mild 1-3) Last Admin: 03/25/21 12:43 Dose: 1,000 mg Documented by: Benzocaine/Menthol (Benzocaine/Menthol 20%-0.5% [place] 78 Gm Cannister) 78 gm TOP ASDIRECTED PRN PRN Reason: Perineal Comfort Measure Last Admin: 03/24/21 05:26 Dose: 1 tub Documented by: Bisacodyl (Bisacodyl 10 Mg Supp) 10 mg RECTAL ONETIME PRN PRN Reason: Constipation Docusate Sodium (Docusate Sodium 100 Mg Cap) 100 mg PO Q12H PRN PRN Reason: Constipation Emollient Ointment (Lanolin 100% Cream 7 Gm Tube) 0 gm TOP ASDIRECTED PRN PRN Reason: Sore Nipples Ibuprofen (Ibuprofen 400 Mg Tab) 400 mg PO Q4H PRN PRN Reason: Pain (mild 1-3) Ibuprofen (Ibuprofen 800 Mg Tab) 800 mg PO Q6H PRN PRN Reason: Pain (mild 1-3) Last Admin: 03/25/21 16:57 Dose: 800 mg Documented by: Oxycodone HCl (Oxycodone 5 Mg Tab) 5 mg PO Q2H PRN PRN Reason: Pain (severe 7-10) Witch Adriana (Witch Adriana Medicated Pads 40/Jar) 1 pad TOP ASDIRECTED PRN PRN Reason: comfort care Last Admin: 03/24/21 05:26 Dose: 1 tub Documented by: Discontinued Medications Butorphanol Tartrate (Butorphanol 1 Mg/Ml Sdv) 1 mg IVPUSH Q1H PRN PRN Reason: Pain (severe 7-10) Carboprost Tromethamine (Carboprost Tromethamine 250 Mcg/1 Ml Amp) 250 mcg IM ASDIRECTED PRN PRN Reason: Post Hemorrhage Oxytocin/Sodium Chloride (Oxytocin 30 Unit/500 Ml-Ns) Confirm Administered Dose 30 unit in 500 mls @ as directed .ROUTE .STK-MED ONE Stop: 03/24/21 04:51 Last Admin: 03/24/21 14:44 Dose: Not Given Documented by: Oxytocin/Sodium Chloride (Oxytocin 30 Unit/500 Ml-Ns) 30 unit in 500 mls @ 500 mls/hr IV TITRATE [facility] Last Admin: 03/24/21 05:55 Dose: 500 mls/hr Documented by: Tranexamic Acid 1,000 mg/ (Sodium Chloride) 110 mls @ 660 mls/hr IV ONETIME PRN PRN Reason: Bleeding Lactated Ringer's (Ringers, Lactated) 1,000 mls @ 150 mls/hr IV ASDIRECTED [facility] Last Admin: 03/24/21 04:39 Dose: 999 mls/hr Documented by: Oxytocin/Sodium Chloride (Oxytocin 30 Unit/500 Ml-Ns) Confirm Administered Dose 30 unit in 500 mls @ as directed .ROUTE .STK-MED ONE Stop: 03/24/21 05:51 Last Admin: 03/24/21 14:31 Dose: Not Given Documented by: Lidocaine HCl (Lidocaine 1% 50 Ml Mdv) 50 ml INJECT ONETIME PRN PRN Reason: Laceration repair Methylergonovine Maleate (Methylergonovine 0.2 Mg/1 Ml Amp) 0.2 mg IM ASDIRECTED PRN PRN Reason: Post Hemorrhage Misoprostol (Misoprostol 200 Mcg Tab) 200 mcg PO ONETIME PRN PRN Reason: Post Hemorrhage Nalbuphine HCl (Nalbuphine 10 Mg/1 Ml Vial) 10 mg IVPUSH Q1H PRN PRN Reason: Pain (severe 7-10) Sodium Chloride (Sodium Chloride 0.9% 10 Ml Syringe) 10 ml FLUSH ASDIRECTED PRN PRN Reason: Keep Vein Open Sodium Chloride (Sodium Chloride 0.9% 2.5 Ml Syringe) 2.5 ml FLUSH ASDIRECTED PRN PRN Reason: Keep Vein Open Sodium Chloride (Sodium Chloride 0.9% 10 Ml Sdv) 10 ml IV ASDIRECTED PRN PRN Reason: IV Use Sterile Water (Water For Irrigation,Sterile 1,000 Ml Container) 1,000 ml IRR ASDIRECTED PRN PRN Reason: delivery - Exam General: Reports: Alert, Oriented, Cooperative, No Acute Distress Lungs: Reports: Normal Respiratory Effort Cardiovascular: Reports: Regular Rate, Regular Rhythm GI/Abdominal Exam: Soft, Non-Tender (Female) Exam: Deferred Rectal (Female) Exam: Deferred Back Exam: Reports: Normal Inspection, Full Range of Motion Extremities: Normal Inspection, Normal Range of Motion, Non-Tender, Normal Capillary Refill Skin: Reports: Warm, Dry, Intact Neurological: Reports: No New Focal Deficit, Normal Speech, Normal Tone, Sensation Intact Psy/Mental Status: Reports: Alert, Normal Affect, Normal Mood
== END 2021-03-25 18:40 | disposition home or self-care (01) | DRG 560 ==
LOC: MW.OBCHECK 04:22 → MW.OB 04:24 → MW.OBCHECK 04:25 → OBSVTOIN 04:48 → MW.OB 10:00
PROVIDERS: ADMIT Obstetrics & Gynecology Obstetrics; ATTEND Obstetrics & Gynecology
PROC: 10E0XZZ Delivery of Products of Conception, External Approach (ICD-10-PCS; principal; 2021-03-24)
DX: O48.0 Post-term pregnancy (principal); Z37.0 Single live birth; O99.62 Diseases of the digestive system complicating childbirth; K21.9 Gastro-esophageal reflux disease without esophagitis; O99.214 Obesity complicating childbirth; O99.824 Streptococcus B carrier state complicating childbirth; O69.81X0 Labor and delivery complicated by cord around neck, without compression, not applicable or unspecified; Z20.822 Contact with and (suspected) exposure to COVID-19; Z3A.40 40 weeks gestation of pregnancy; Z88.0 Allergy status to penicillin
CPT/HCPCS: 36415; 59025; 59409; 85014; 85018; 85027; 86592; 86850; 86900; 86901; A9270-GY; J2590; J7120; U0002

== ENCOUNTER 2021-05-14 11:32 | Day surgery (SDC) | payer BC ==
[2021-05-14] MEDS ORDERED: Glucagon,Human Recombinant 1 MG Vial IVPUSH ONE (12:43)
--- NOTE | 2021-05-14 13:42 | EDM.PDOC ---
ED HPI GENERAL MEDICAL PROBLEM - General Chief Complaint: Abdominal Pain Stated Complaint: CHICKEN STUCK IN THROAT Time Seen by Provider: 05/14/21 12:31 Source of Information: Reports: Patient History Limitations: Reports: No Limitations - History of Present Illness INITIAL COMMENTS - FREE TEXT/NARRATIVE: HISTORY AND PHYSICAL: History of present illness: Patient is a 25-year-old female presents emergency room today with concern of chicken stuck in her throat with the inability to tolerate p.o. intake following the incident. Patient states that last night she was eating chicken at about 9 PM and states that it got stuck. Patient states her boyfriend told her to try to drink Coke that she got at [employer] and states that she has not been able to get it to go down and immediately vomits after. Patient states that she thought it was going to go down on its own but has persisted throughout today. Patient denies any health history. Patient states that she is currently breast- feeding but does state that she does not believe to be and she is currently menstruating since yesterday. Patient denies any other symptoms or concerns. Patient denies fever, chills, chest pain, shortness of breath, or cough. Denies headache, neck stiff ness, change in vision, syncope, or near syncope. Denies nausea, vomiting, abdominal pain, diarrhea, constipation, or dysuria. Has not noted any blood in urine or stool. Patient has been eating and drinking appropriately. Review of systems: As per history of present illness and below otherwise all systems reviewed and negative. Past medical history: As per history of present illness and as reviewed below otherwise noncontributory. Surgical history: As per history of present illness and as reviewed below otherwise noncontributory. Social history: See social history for further information Family history: As per history of present illness and as reviewed below otherwise noncontributory. Physical exam: General: Patient is alert, oriented, and in no acute distress. Patient sitting comfortably on exam table. Vitals stable and reviewed by me. HEENT: Atraumatic, normocephalic, pupils equal and reactive bilaterally, negative for conjunctival pallor or scleral icterus, mucous membranes moist, TMs normal bilaterally, throat clear, neck supple, nontender, trachea midline. No drooling or trismus noted. No meningeal signs. No hot potato voice noted. Lungs: Clear to auscultation, breath sounds equal bilaterally, chest nontender. Heart: S1S2, regular rate and rhythm without overt murmur Abdomen: Soft, nondistended, nontender. Negative for masses or hepatosplenomegaly. Negative for costovertebral tenderness. Pelvis: Stable nontender. Genitourinary: Deferred. Rectal: Deferred. Skin: Intact, warm, dry. No lesions or rashes noted. Extremities: Atraumatic, negative for cords or calf pain. Neurovascular unremarkable. Neuro: Awake, alert, oriented. Cranial nerves II through XII unremarkable. Cerebellum unremarkable. Motor and sensory unremarkable throughout. Exam nonfocal. Notes: Patient is a 25-year-old female who presents emergency room today secondary to esophageal fluid bolus since 9 PM last night. Upon arrival to the ED, patient is vitally stable and well-appearing on exam. However, patient has not able to take any sips of fluid without immediately vomiting afterwards concerning for obstructive esophageal food bolus. Will provide patient with IV glucagon, and coke and see if patient is able to clear the esophageal food bolus. After IV glucagon and coke, patient continues to have an obstructed esophageal food bolus. I did call and speak to the general surgeon on-call, Dr. Eller, and thoroughly discussed patient's case. She has come in to personally see and evaluate the patient. See her official consult note for further treatment and disposition. Will transfer to the operating room to Dr. Eller Voices understanding and is agreeable to plan of care. Denies any further quest ions or concerns at this time. Diagnostics: Urine , COVID-19 Therapeutics: Glucagon Impression: Esophageal food bolus obstruction Plan: Transfer to the OR to Dr. Eller, general surgery Definitive disposition and diagnosis as appropriate pending reevaluation and review of above. throat Pain Score (Numeric/FACES): 5 - Related Data Allergies Allergy/AdvReac Type Severity Reaction Status Date / Time lactose Allergy Diarrhea Verified 05/14/21 12:28 Penicillins Allergy Rash Verified 05/14/21 12:28 Home Meds: Home Meds Vits #93/Iron Fum/FA [ Formula Tablet] 1 each PO DAILY 03/10/18 [History] Levonorgestrel/Ethin.estradiol [[place]-28 Tablet] 1 dose PO DAILY 05/14/21 [History] Sertraline HCl [Zoloft] 50 mg PO DAILY 05/14/21 [History] Past Medical History - Past Health History Medical/Surgical History: Denies Medical/Surgical History HEENT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: None Cardiovascular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: None Respiratory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: None Gastrointestinal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: GERD Genitourinary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: None FAMILY RESOURCE MANAGEMENT PROFESSOR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: , 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) Other FAMILY RESOURCE MANAGEMENT PROFESSOR History: chlamydia diagnosed in aug 2015 Musculoskeletal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: None Neurological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: None Psychiatric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: None Endocrine/Metabolic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: Obesity/BMI 30+ Hematologic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: None, 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) Immunologic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: None Oncologic (Cancer)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: None Dermatologic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: None - Infectious Disease History Infectious Disease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: None - Past Surgical History Head Surgeries/Procedures: Reports: None Social & Family History - Family History Family Medical History: No Pertinent Family History Respiratory: Reports: COPD, 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) Other Respiratory Family Hisory: emphysema Oncologic: Reports: Lung - Tobacco Use Tobacco Use Status *Q: Never Tobacco User Second Hand Smoke Exposure: No - Caffeine Use Caffeine Use: Reports: Coffee, Soda - Recreational Drug Use Recreational Drug Use: No ED ROS GENERAL - Review of Systems Review Of Systems: Comprehensive ROS is negative, except as noted in HPI. ED EXAM, GENERAL - Physical Exam Exam: See Below (see dictation) Course - Vital Signs Last Recorded V/S: Last Vital Signs Temp 97 F 05/14/21 12:31 Pulse 59 L 05/14/21 12:31 Resp 16 05/14/21 12:31 BP 98/73 05/14/21 12:31 Pulse Ox 97 05/14/21 12:31 - Orders/Labs/Meds Orders: Active Orders 24 hr Category Date Time Status Admission Status [Patient Status] [ADT] Stat ADT 05/14/21 14:12 Active CORONAVIRUS COVID-19 MIKE [MOLEC] Stat Lab 05/14/21 13:40 Received Sodium Chloride 0.9% [Normal Saline] 1,000 ml Med 05/14/21 14:12 Active IV STAT Medication Orders Sodium Chloride (Normal Saline) 1,000 mls @ 999 mls/hr IV STAT ONE Stop: 05/14/21 15:12 Last Admin: 05/14/21 14:29 Dose: 999 mls/hr Documented by: [email or web address] Labs: Laboratory Tests 05/14/21 Range/Units 13:40 Urine HCG, Qual NEGATIVE (NEGATIVE) Meds: Medications Generic Name Dose Route Start Last Admin Trade Name Jess PRN Reason Stop Dose Admin Sodium Chloride 1,000 mls @ 999 mls/hr 05/14/21 14:12 05/14/21 14:29 Normal Saline IV 05/14/21 15:12 999 mls/hr STAT ONE Administration Discontinued Medications Generic Name Dose Route Start Last Admin Trade Name Jess PRN Reason Stop Dose Admin Glucagon 1 mg 05/14/21 12:43 05/14/21 13:22 Glucagon,Human Recombinant 1 Mg Vial IVPUSH 05/14/21 12:44 1 mg ONETIME ONE Administration Departure - Departure Time of Disposition: 14:36 Disposition: Still A Patient 30 Clinical Impression: Esophageal obstruction due to food impaction - Discharge Information Sepsis Event Note (ED) - Evaluation Sepsis Screening Result: No Definite Risk - Focused Exam Vital Signs: Vital Signs Temp Pulse Resp BP Pulse Ox 05/14/21 12:31 97 F 59 L 16 98/73 97 - My Orders Last 24 Hours: My Active Orders 05/14/21 13:40 CORONAVIRUS COVID-19 MIKE [MOLEC] Stat 05/14/21 14:12 Admission Status [Patient Status] [ADT] Stat Sodium Chloride 0.9% [Normal Saline] 1,000 ml IV STAT - Assessment/Plan Last 24 Hours: My Active Orders 05/14/21 13:40 CORONAVIRUS COVID-19 MIKE [MOLEC] Stat 05/14/21 14:12 Admission Status [Patient Status] [ADT] Stat Sodium Chloride 0.9% [Normal Saline] 1,000 ml IV STAT
[2021-05-14] MEDS ORDERED: Sodium Chloride 0.9% 1,000 ML IV ONE (14:12)
--- NOTE | 2021-05-14 14:39 | PCM.PREANE ---
Preanesthetic Assessment - Anesthesia/Transfusion/Family Hx Anesthesia History: No Prior Anesthesia Family History of Anesthesia Reaction: No Transfusion History: No Prior Transfusion(s) - Physical Assessment NPO Status Date: 05/14/21 NPO Status Time: 00:05 Vital Signs: Last Vital Signs Temp 36.1 C 05/14/21 12:31 Pulse 59 L 05/14/21 12:31 Resp 16 05/14/21 12:31 BP 98/73 05/14/21 12:31 Pulse Ox 97 05/14/21 12:31 Height: 1.57 m Weight: 63.049 kg ASA Class: 1E Dentition: Reports: Normal Dentition - Lab Values: Laboratory Last Values Urine HCG, Qual NEGATIVE (NEGATIVE) 05/14/21 13:40 - Allergies Allergies/Adverse Reactions: Allergies Allergy/AdvReac Type Severity Reaction Status Date / Time lactose Allergy Diarrhea Verified 05/14/21 12:28 Penicillins Allergy Rash Verified 05/14/21 12:28 - Acknowledgements Anesthesia Type Planned: General Anesthesia Pt an Appropriate Candidate for the Planned Anesthesia: Yes Alternatives and Risks of Anesthesia Discussed w Pt/Guardian: Yes Pt/Guardian Understands and Agrees with Anesthesia Plan: Yes PreAnesthesia Questionnaire - Past Health History Medical/Surgical History: Denies Medical/Surgical History HEENT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: None Cardiovascular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: None Respiratory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: None Gastrointestinal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: GERD Genitourinary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: None 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: , 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) Other OB/BYN History: chlamydia diagnosed in aug 2015 Musculoskeletal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: None Neurological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: None Psychiatric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: None Endocrine/Metabolic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: Obesity/BMI 30+ Hematologic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: None, 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) Immunologic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: None Oncologic (Cancer)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: None Dermatologic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: None - Infectious Disease History Infectious Disease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: None - Past Surgical History Head Surgeries/Procedures: Reports: None - SUBSTANCE USE Tobacco Use Status *Q: Never Tobacco User Second Hand Smoke Exposure: No Recreational Drug Use History: No - HOME MEDS Home Medications: Home Meds Vits #93/Iron Fum/FA [ Formula Tablet] 1 each PO DAILY 03/10/18 [History] Levonorgestrel/Ethin.estradiol [[place]-28 Tablet] 1 dose PO DAILY 05/14/21 [History] Sertraline HCl [Zoloft] 50 mg PO DAILY 05/14/21 [History] - CURRENT (IN HOUSE) MEDS Current Meds: Current Medications Sodium Chloride (Normal Saline) 1,000 mls @ 999 mls/hr IV STAT ONE Stop: 05/14/21 15:12 Last Admin: 05/14/21 14:29 Dose: 999 mls/hr Documented by: Discontinued Medications Glucagon (Glucagon,Human Recombinant 1 Mg Vial) 1 mg IVPUSH ONETIME ONE Stop: 05/14/21 12:44 Last Admin: 05/14/21 13:22 Dose: 1 mg Documented by:
--- NOTE | 2021-05-14 14:42 | PCM.HP.2 ---
H&P History of Present Illness - General Date of Service: 05/14/21 Admit Problem/Dx: Admission Diagnosis/Problem Admission Diagnosis/Problem Esophageal dysphagia Source of Information: Patient History Limitations: Reports: No Limitations - History of Present Illness Initial Comments - Free Text/Narative: Patient is a 25 year old female who presents with an esophageal food impaction. She suffers from heartburn. Recently she was and is 7 weeks s/p an uneventful delivery. She states that she had bad heartburn symptoms during her . She has had issues with food sticking with swallowing in the past. She has never had food impacted before. She went out to eat last evening. She ate her first bites of chicken and felt the food become impacted. She tried vom iting, drinking coca cola and nothing helped. She woke up this morning and the food has remained impacted. She cannot swallow her saliva anymore. Her vitals were stable on arrival. The ER physicians tried glucagon with no relief. throat Pain Score (Numeric/FACES): 5 - Related Data Allergies/Adverse Reactions: Allergies Allergy/AdvReac Type Severity Reaction Status Date / Time lactose Allergy Diarrhea Verified 05/14/21 12:28 Penicillins Allergy Rash Verified 05/14/21 12:28 Home Medications: Home Meds Vits #93/Iron Fum/FA [ Formula Tablet] 1 each PO DAILY 03/10/18 [History] Levonorgestrel/Ethin.estradiol [[place]-28 Tablet] 1 dose PO DAILY 05/14/21 [History] Sertraline HCl [Zoloft] 50 mg PO DAILY 05/14/21 [History] Past Medical History - Past Health History Medical/Surgical History: Denies Medical/Surgical History HEENT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: None Cardiovascular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: None Respiratory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: None Gastrointestinal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: GERD Genitourinary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: None 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: , 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) Other OB/BYN History: chlamydia diagnosed in aug 2015 Musculoskeletal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: None Neurological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: None Psychiatric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: Depression Endocrine/Metabolic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: Obesity/BMI 30+ Hematologic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: None, 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) Immunologic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: None Oncologic (Cancer)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: None Dermatologic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: None - Infectious Disease History Infectious Disease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: None - Past Surgical History Head Surgeries/Procedures: Reports: None Social & Family History - Family History Family Medical History: No Pertinent Family History Respiratory: Reports: COPD, 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) Other Respiratory Family Hisory: emphysema Oncologic: Reports: Lung - Tobacco Use Tobacco Use Status *Q: Never Tobacco User Second Hand Smoke Exposure: No - Caffeine Use Caffeine Use: Reports: Coffee, Soda - Recreational Drug Use Recreational Drug Use: No H&P Review of Systems - Review of Systems: Review Of Systems: Comprehensive ROS is negative, except as noted in HPI. Exam - Exam Exam: See Below - Vital Signs Vital Signs: Last Vital Signs Temp 36.1 C 05/14/21 12:31 Pulse 59 L 05/14/21 12:31 Resp 16 05/14/21 12:31 BP 98/73 05/14/21 12:31 Pulse Ox 97 05/14/21 12:31 Weight: 63.049 kg - Exam General: Alert, Oriented, Cooperative, Mild Distress HEENT: Conjunctiva Clear, Mucosa Moist & [place], Posterior Pharynx Clear Neck: Supple, Trachea Midline, Other (no crepitus) Lungs: Clear to Auscultation, Normal Respiratory Effort Cardiovascular: Regular Rate, Regular Rhythm GI/Abdominal Exam: Soft, Non-Tender, No Distention, No Mass Extremities: Normal Inspection, Normal Range of Motion - Patient Data Lab Results Last 24 hrs: Laboratory Results - last 24 hr 05/14/21 Range/Units 13:40 Urine HCG, Qual NEGATIVE (NEGATIVE) Sepsis Event Note - Evaluation Sepsis Screening Result: No Definite Risk - Focused Exam Vital Signs: Vital Signs Temp Pulse Resp BP Pulse Ox 05/14/21 12:31 36.1 C 59 L 16 98/73 97 Problem List Initiated/Reviewed/Updated: Yes Orders Last 24hrs: Active Orders 24 hr Category Date Time Status Admission Status [Patient Status] [ADT] Stat ADT 05/14/21 14:12 Active CORONAVIRUS COVID-19 MIKE [MOLEC] Stat Lab 05/14/21 13:40 Received Sodium Chloride 0.9% [Normal Saline] 1,000 ml Med 05/14/21 14:12 Active IV STAT Medication Orders Sodium Chloride (Normal Saline) 1,000 mls @ 999 mls/hr IV STAT ONE Stop: 05/14/21 15:12 Last Admin: 05/14/21 14:29 Dose: 999 mls/hr Documented by: LAURA Assessment/Plan Comment:: Patient and I discussed the nature of food bolus esophageal impactions. Likely she has some esophagitis from her heartburn that has caused this to occur. We discussed the need for a diagnostic EGD with food bolus disimpaction. I explained that she will need to be intubated for this. I explained the procedure, expected post-operative course and the risks including bleeding, aspiration or perforation. She verbalized understanding and wishes to proceed.
[2021-05-14] MEDS ORDERED: Propofol 200 MG/20 ML SDV ONE (14:43)
[2021-05-14] MEDS ORDERED: Midazolam 1 MG/ML 2 ML SDV ONE (14:43)
[2021-05-14] MEDS ORDERED: Lidocaine 2% 5 ML SDV ONE (14:45)
[2021-05-14] MEDS ORDERED: Ondansetron 4 MG/2 ML SDV ONE (14:45)
[2021-05-14] MEDS ORDERED: Glycopyrrolate 0.2 MG/ML SDV ONE (14:45)
--- NOTE | 2021-05-14 15:44 | PCM.OPNOTE ---
- General Post-Op/Procedure Note Date of Surgery/Procedure: 05/14/21 Operative Procedure(s): Diagnostic EGD with food disimpaction and biopsy Findings: Gastritis with superficial scattered ulceration in stomach, esophagitis at GE junction Pre Op Diagnosis: Esophageal obstruction due to food impaction Post-Op Diagnosis: Esophageal obstruction due to food impaction, gastritis and esophagitis Anesthesia Technique: [facility] [place] Primary Surgeon: Tereza Eller Condition: Stable
[2021-05-14] MEDS ORDERED: Pantoprazole 40 MG Tab.CR PO ONE (15:51)
--- NOTE | 2021-05-14 15:56 | PCM.POSTAN ---
POST ANESTHESIA ASSESSMENT - MENTAL STATUS Mental Status: Alert - VITAL SIGNS Vital Signs: Last Vital Signs Temp 36.1 C 05/14/21 14:51 Pulse 101 H 05/14/21 15:45 Resp 15 05/14/21 15:45 BP 94/61 05/14/21 15:45 Pulse Ox 98 05/14/21 15:45 - RESPIRATORY Respiratory Status: Respiratory Rate WNL - CARDIOVASCULAR CV Status: Pulse Rate WNL - GASTROINTESTINAL GI Status: No Symptoms - POST OP HYDRATION Hydration Status: Adequate & Stable
--- NOTE | 2021-05-14 15:56 | PCM48HPAN ---
Post Anesthesia Note - EVALUATION WITHIN 48HRS OF ANESTHETIC Vital Signs in Normal Range: Yes Patient Participated in Evaluation: Yes Respiratory Function Stable: Yes Airway Patent: Yes Cardiovascular Function Stable: Yes Hydration Status Stable: Yes Pain Control Satisfactory: Yes Nausea and Vomiting Control Satisfactory: Yes Mental Status Recovered: Yes Vital Signs: Last Vital Signs Temp 36.1 C 05/14/21 14:51 Pulse 101 H 05/14/21 15:45 Resp 15 05/14/21 15:45 BP 94/61 05/14/21 15:45 Pulse Ox 98 05/14/21 15:45
[2021-05-14 15:58] VITALS: BP 101/59; PULSE 86
--- NOTE | 2021-05-14 17:46 | OR ---
SURGEON: TEREZA ELLER MD DATE OF PROCEDURE: 05/14/2021 PREOPERATIVE DIAGNOSIS: Esophageal obstruction due to food impaction. POSTOPERATIVE DIAGNOSES: 1. Esophageal obstruction due to food impaction. 2. Esophagitis. 3. Gastritis. PROCEDURE PERFORMED: Diagnostic esophagogastroduodenoscopy with food disimpaction and biopsy. PRIMARY SURGEON: Tereza Eller MD ANESTHESIA: General endotracheal anesthesia. FLUIDS: 450 mL crystalloid. ESTIMATED BLOOD LOSS: Zero. INSTRUMENT USED: Olympus endoscope. EXTENT OF EXAM: To the second portion of duodenum. COMPLICATIONS: None. FINDINGS: A large piece of chicken impacted at the GE junction. Once this was removed, the patient was noted to have gastritis as well as distal esophagitis. INDICATIONS: The patient is a 25-year-old female who was eating dinner last night when she felt a piece of food become impacted in her esophagus. She tried multiple noninvasive measures with no relief in her symptoms. She presented to the emergency room today. The decision was made to proceed to the operating room for an EGD with food disimpaction and possible biopsy. I explained the procedure to the patient, the expected perioperative course, and the risks. She verbalized understanding and wishes to proceed. PROCEDURE IN DETAIL: The patient was brought into the OR and placed on the OR table in supine position. A time-out was completed verifying the patient's name, age, date of , allergies, and procedure to be performed. Rapid sequence intubation was performed. Once the tube was in place and secured, a bite block was placed in the patient's mouth. A well-lubricated endoscope was placed in the patient's mouth and advanced under direct visualization to the distal esophagus. At the level of the distal esophagus, the patient was found to have a large piece of meat impacted. I attempted irrigation and gentle air pressure, but this would not dislodge. A tri-prong grasper was brought into the field. It was used to grasp and morcellate the piece of food. Multiple passes were made and pieces of the food were removed through the oral cavity. Eventually, the main body of the piece of meat was able to be grasped and removed through the mouth. I was then able to pass the scope safely into the second portion of duodenum. A photograph of this was taken. It appeared normal. The scope was then fully withdrawn while examining the color, texture, and anatomy of the upper GI tract. The duodenum appeared normal. The scope was brought in the stomach and a photograph was taken of the pylorus and GE junction. The patient was noted to have superficial gastritis with very small superficial areas of ulceration. A biopsy was taken of the antrum and sent to Pathology for H pylori testing. The scope was then brought to the distal esophagus. The Z-line appeared inflamed, and there was a small superficial ulcer along the distal esophageal mucosa. A photograph of this was taken. The remainder of the esophagus appeared normal. Great care was taken to suction any extra fluid out and remove any small pieces of meat left in the esophagus. The scope was removed and the procedure terminated. The patient was extubated and taken to PACU in stable condition. HARRISON HOFFMANN /[id number]
== END 2021-05-14 16:26 | disposition home or self-care (01) ==
LOC: MW.ED 11:32 → MW.SDS 14:17
PROVIDERS: ATTEND Surgery
DX: T18.128A Food in esophagus causing other injury, initial encounter (principal); K22.2 Esophageal obstruction; K20.90 Esophagitis, unspecified without bleeding; K29.70 Gastritis, unspecified, without bleeding; Z01.812 Encounter for preprocedural laboratory examination; Z20.822 Contact with and (suspected) exposure to COVID-19; Z88.0 Allergy status to penicillin
CPT/HCPCS: 43239; 43247; 81025; 87635; 88305; 88342; 96374; 99284; A9270; J0330; J1610; J2250; J2405; J2704; J3490; J7030; 00731; U0002

== ENCOUNTER 2022-01-21 13:28 | Emergency (ER) | payer BC ==
[2022-01-21] MEDS ORDERED: predniSONE 20 MG Tab PO ONE (14:13)
[2022-01-21 14:21] VITALS: BP 111/68; PULSE 71
[2022-01-21] MEDS ORDERED: Ketorolac 30 MG/ML SDV IM ONE (14:21)
== END 2022-01-21 14:50 | disposition home or self-care (01) ==
LOC: MW.ED 13:28
DX: R07.9 Chest pain, unspecified (principal); J04.0 Acute laryngitis; K21.9 Gastro-esophageal reflux disease without esophagitis; E66.9 Obesity, unspecified; Z68.25 Body mass index [BMI] 25.0-25.9, adult; Z88.0 Allergy status to penicillin; Z91.011 Allergy to milk products; Z20.822 Contact with and (suspected) exposure to COVID-19; Z79.899 Other long term (current) drug therapy
CPT/HCPCS: 71045; 87635; 93005; 96372; 99285; A9270; J1885; 93010; 99283; U0002

== ENCOUNTER 2023-06-17 08:32 | Day surgery (SDC) | payer BC ==
[2023-06-17] MEDS ORDERED: Iopamidol 755 MG/ML 500 ML Multipack Bottle IVPUSH STA (09:29)
[2023-06-17] MEDS ORDERED: Sodium Chloride 0.9% 500 ML IV SCH (11:00)
[2023-06-17] MEDS ORDERED: metroNIDAZOLE/Normal Saline 500 MG in Premix Bag 1 BAG IV ONE (11:15)
[2023-06-17] MEDS ORDERED: EPINEPHrine 1 MG/1 ML Amp ONE (11:44)
[2023-06-17] MEDS ORDERED: Ropivacaine 0.5% 5 MG/ML 30 ML SDV ONE (11:44)
[2023-06-17] MEDS ORDERED: Bupivacaine 0.25% 30 ML SDV ONE (11:44)
[2023-06-17] MEDS ORDERED: Ketorolac 30 MG/ML SDV ONE (11:46)
[2023-06-17] MEDS ORDERED: Propofol 200 MG/20 ML SDV ONE (11:46)
[2023-06-17] MEDS ORDERED: Sugammadex Sodium 200 MG/2 ML VIAL ONE (11:46)
[2023-06-17] MEDS ORDERED: Lidocaine 2% 5 ML SDV ONE (11:46)
[2023-06-17] MEDS ORDERED: Rocuronium Bromide 50 MG/5 ML Syringe ONE (11:46)
[2023-06-17] MEDS ORDERED: Dexamethasone 4 MG/ML 5 ML MDV ONE (11:46)
[2023-06-17] MEDS ORDERED: Ondansetron 4 MG/2 ML SDV ONE (11:46)
[2023-06-17] MEDS ORDERED: fentaNYL 100 MCG/2 ML SDV ONE (11:46)
[2023-06-17] MEDS ORDERED: Bupivacaine 0.5% 30 ML SDV ONE (12:11)
[2023-06-17] MEDS ORDERED: Sodium Chloride 0.9% 2.5 ML Syringe FLUSH PRN (12:57)
[2023-06-17] MEDS ORDERED: Sodium Chloride 0.9% 10 ML Syringe FLUSH PRN (12:57)
[2023-06-17] MEDS ORDERED: HYDROmorphone 1 MG/ML Syringe IVPUSH PRN ×2 (12:57→13:05)
[2023-06-17] MEDS ORDERED: Ondansetron 4 MG/2 ML SDV IVPUSH PRN ×2 (12:57→13:05)
[2023-06-17] MEDS ORDERED: Sodium Chloride 0.9% 20 ML SDV IV PRN (12:57)
[2023-06-17] MEDS ORDERED: Sodium Chloride 0.9% 1,000 ML IV SCH (13:00)
[2023-06-17] MEDS ORDERED: fentaNYL 50 MCG/ML SDV IVPUSH PRN (13:05)
[2023-06-17] MEDS ORDERED: droPERidol 5 MG/2 ML SDV IVPUSH PRN (13:05)
[2023-06-17] MEDS ORDERED: Albuterol 0.083% 2.5 MG/3 ML Neb Soln NEB PRN (13:05)
[2023-06-17] MEDS ORDERED: Naloxone 0.4 MG/ML SDV IVPUSH PRN (13:05)
[2023-06-17] MEDS ORDERED: Morphine 2 MG/ML SYRINGE IVPUSH PRN (13:05)
[2023-06-17] MEDS ORDERED: Metoclopramide 10 MG/2 ML SDV IVPUSH PRN (13:05)
[2023-06-17] MEDS: Ciprofloxacin in D5W 400 MG in Premix Bag 1 BAG IV SCH ×4 (14:06→23:14)
[2023-06-17] MEDS: Acetaminophen/HYDROcodone 325-5 MG Tab PO PRN (21:45)
[2023-06-18 04:29] VITALS: BP 105/58; PULSE 68
[2023-06-18] MEDS: Acetaminophen/HYDROcodone 325-5 MG Tab PO PRN (04:39)
[2023-06-18] MEDS ORDERED: Polyethylene Glycol 3350 Powder 17 GM Packet PO SCH (09:00)
== END 2023-06-18 09:00 | disposition home or self-care (01) ==
LOC: MW.ED 08:32 → MW.MS 11:29 → MW.SDS 11:29 → MW.MS 13:46 → MW.SDS 06-18 09:00
PROVIDERS: ATTEND Surgery
DX: K35.30 Acute appendicitis with localized peritonitis, without perforation or gangrene (principal); N83.201 Unspecified ovarian cyst, right side; K21.9 Gastro-esophageal reflux disease without esophagitis; F32.A Depression, unspecified; E66.9 Obesity, unspecified; Z68.30 Body mass index [BMI] 30.0-30.9, adult; Z88.0 Allergy status to penicillin; Z91.011 Allergy to milk products
CPT/HCPCS: 44970; 74177; 99285; A9270; J0131; J0171; J0744; J1100; J1170; J1885; J2405; J2704; J2795; J3010; J3490; J7030; J7040; Q9967; 00840; 64488; 99100

== ENCOUNTER 2024-12-07 11:55 | Emergency (ER) | payer BC ==
[2024-12-07] MEDS: Bupivacaine 0.5% 10 ML SDV INJECT ONE (12:40)
[2024-12-07] MEDS: Bupivacaine 0.5% 30 ML SDV INJECT ONE (13:01)
[2024-12-07] MEDS: Ketorolac 30 MG/ML SDV IM ONE (13:21)
[2024-12-07 13:48] VITALS: BP 115/71; PULSE 81
== END 2024-12-07 13:48 | disposition home or self-care (01) ==
LOC: MW.ED 11:55
DX: M62.838 Other muscle spasm (principal); E66.9 Obesity, unspecified; Z79.899 Other long term (current) drug therapy; Z91.011 Allergy to milk products; Z88.2 Allergy status to sulfonamides; Z88.0 Allergy status to penicillin; Z90.49 Acquired absence of other specified parts of digestive tract; Z68.35 Body mass index [BMI] 35.0-35.9, adult
CPT/HCPCS: 20552; 96372; 99283; J0665; J1100; J1885